=== PATIENT | female | born 1985 | race Caucasian/White ===

== ENCOUNTER 2018-02-02 22:39 | Emergency (ER) | payer OTHER, MEDICAID, SELFPAY | END 2018-02-03 02:46 | disposition home or self-care (01) | PROVIDERS: Emergency Provider Emergency Medicine; Visit Provider Emergency Medicine | DX: N12 Tubulo-interstitial nephritis, not specified as acute or chronic (principal) | CPT/HCPCS: 71010; 71045; 80053; 81003; 81015; 81025; 83690; 85025; 86318; 87086; 87400; 93005; 93010; 96360; 96361; 99058; 99285 ==

== ENCOUNTER 2018-11-02 17:47 | Emergency (ER) | payer OTHER, MEDICAID, SELFPAY ==
[2018-11-02 17:52] VITALS: BP 153/102; PULSE 97; RESP 20; TEMP 36.7; O2SAT 97; BMI 22.1
--- NOTE | 2018-11-02 20:02 | PC.NURSE ---
Pt concerned that her boyfriend cheated on her and she may have an std. Pt has not had any energy for some time feeling like she could sleep for 3 days. Pt denies any urinary sx other than some pressure with urination,denies odor or discharge
--- NOTE | 2018-11-02 20:36 | ED_ITS ---
HPI - Abdominal Pain <FELICIA Kelsey - Last Filed: 11/02/18 22:13> General Chief Complaint: Abdominal Pain Stated Complaint: LOW ENERGY, WANTS TO R/O STD Time Seen by Provider: 11/02/18 20:36 Source: patient Mode of arrival: ambulatory Limitations: no limitations History of Present Illness HPI narrative: 33-year-old healthy female with vague symptoms of weakness with lack of energy and occasional abdominal pain on off for the past year. She is also concerned about having a STD. She denies any vaginal discharge. She denies any vaginal bleeding. She states she thinks that her her boyfriend is cheating on her and is concerned she may have an STD denies any abdominal pain this evening. Last bowel movement was yesterday and was unremarkable. She denies any urinary symptoms. No fevers no chills. Positive p.o. intake. No nausea or vomiting. She denies any other concerns or complaints at this time. Related Data Previous Rx's Medication Instructions Recorded sulfamethoxazole-trimethoprim 1 tab PO BID 14 Days #0 tab 02/03/18 Allergies Allergy/AdvReac Type Severity Reaction Status Date / Time No Known Allergies Allergy Uncoded 02/02/18 22:47 Review of Systems <FELICIA Kelsey - Last Filed: 11/02/18 22:13> Constitutional Denies chills, Denies fever(s), Denies lethargy and Reports weakness Eyes Denies change in vision, Denies eye discharge, Denies irritation and Denies loss of vision ENT Ears, Nose, Mouth, and Throat: Denies change in voice, Denies neck pain and Denies sore throat Cardiovascular Denies chest pain, Denies irregular heart rhythm, Denies lightheadedness, Denies palpitations, Denies dyspnea, Denies dyspnea on exertion and Denies orthopnea Respiratory Denies cough, Denies dyspnea, Denies dyspnea on exertion and Denies wheezing Gastrointestinal Gastrointestinal: Denies abdominal pain, Denies change in bowel habits, Denies diarrhea, Denies nausea and Denies vomiting Genitourinary Denies hematuria, Denies flank pain, Denies urinary incontinence and Denies urinary urgency Musculoskeletal Denies neck pain Integumentary/Breasts Denies pruritus, Denies erythema, Denies rash and Denies wounds Neurologic Denies confusion, Denies loss of vision and Reports weakness Psychiatric Denies anxiety, Denies confusion, Denies depression, Denies homicidal ideation and Denies suicidal ideation Endocrine Denies palpitations Hematologic/Lymphatic Denies easy bruising Allergic/Immunologic Denies wheezing Exam <FELICIA Kelsey - Last Filed: 11/02/18 22:13> Initial Vital Signs Initial Vital Signs: Vital Signs Temperature 98.1 F 11/02/18 17:52 Pulse Rate 97 H 11/02/18 17:52 Respiratory Rate 20 11/02/18 17:52 Blood Pressure 153/102 H 11/02/18 17:52 Pulse Oximetry 97 11/02/18 17:52 Const General: cooperative and well developed Nutritional Appearance: well nourished Orientation: alert, awake, oriented x3 and not confused HENIL Mouth: oral mucosae normal, oropharynx normal and moist mucous membranes Eyes Conjunctivae: conjunctivae normal Sclera: sclerae normal Pupils: PERRL EOM: EOM intact bilaterally Resp Effort & Inspection: normal respiratory effort, able to speak in complete sentences, no respiratory distress and no use of accessory muscles Auscultation: clear to auscultation bilaterally, no rales, no rhonchi and no wheezes Cardio Rate: regular rate Rhythm: regular rhythm Heart Sounds: no click, no gallops, no murmurs and no rubs GI Inspection: non-distended Palpation: soft, no hepatosplenomegaly, No guarding, No pulsatile mass and No tender Auscultation: normal bowel sounds General: CVA tenderness Skin General: no rashes or lesions noted, No jaundice and No petechiae Neuro General: alert, oriented x3, gait normal and no focal motor deficits Speech: speech normal <Jone Allen DO - Last Filed: 11/03/18 01:40> Initial Vital Signs Initial Vital Signs: Vital Signs Temperature 98.1 F 11/02/18 17:52 Pulse Rate 97 H 11/02/18 17:52 Respiratory Rate 20 11/02/18 17:52 Blood Pressure 153/102 H 11/02/18 17:52 Pulse Oximetry 97 11/02/18 17:52 Course <FELICIA Kelsey - Last Filed: 11/02/18 22:13> Orders Ordered: ED Orders 11/02/18 20:51 XR chest 1V Stat EKG-12 Lead Stat 11/02/18 21:00 Complete Blood Count AUTO DIFF Stat Comprehensive Metabolic Panel Stat HIV 1 and 2 Antibody Stat Herpes Simp Virus 1&2 IgG Stat RPR W Reflex to Titer Stat Urine Chlamydia Gonorrhea PCR Stat Discontinued Medications Azithromycin (Zithromax) 1,000 mg PO NOW ONE Stop: 11/02/18 21:36 Last Admin: 11/02/18 22:23 Dose: 1,000 mg Ceftriaxone Sodium (Rocephin) 250 mg IM NOW ONE Stop: 11/02/18 21:36 Last Admin: 11/02/18 22:24 Dose: 250 mg Vital Signs - 8 hr 11/02/18 17:52 11/02/18 21:26 11/02/18 22:17 Temperature 98.1 F Pulse Rate 97 H 92 H 61 Respiratory Rate 20 17 16 Blood Pressure 153/102 H Blood Pressure [Left Arm] 138/97 H 152/98 H Pulse Oximetry 97 100 100 11/02/18 22:39 Temperature 97.7 F Pulse Rate 87 Respiratory Rate 19 Blood Pressure Blood Pressure [Left Arm] 146/98 H Pulse Oximetry 100 <Jone Allen DO - Last Filed: 11/03/18 01:40> Orders Ordered: ED Orders 11/02/18 20:51 XR chest 1V Stat EKG-12 Lead Stat 11/02/18 21:00 Complete Blood Count AUTO DIFF Stat Comprehensive Metabolic Panel Stat HIV 1 and 2 Antibody Stat Herpes Simp Virus 1&2 IgG Stat RPR W Reflex to Titer Stat Urine Chlamydia Gonorrhea PCR Stat Discontinued Medications Azithromycin (Zithromax) 1,000 mg PO NOW ONE Stop: 11/02/18 21:36 Last Admin: 11/02/18 22:23 Dose: 1,000 mg Ceftriaxone Sodium (Rocephin) 250 mg IM NOW ONE Stop: 11/02/18 21:36 Last Admin: 11/02/18 22:24 Dose: 250 mg Vital Signs - 8 hr 11/02/18 17:52 11/02/18 21:26 11/02/18 22:17 Temperature 98.1 F Pulse Rate 97 H 92 H 61 Respiratory Rate 20 17 16 Blood Pressure 153/102 H Blood Pressure [Left Arm] 138/97 H 152/98 H Pulse Oximetry 97 100 100 11/02/18 22:39 Temperature 97.7 F Pulse Rate 87 Respiratory Rate 19 Blood Pressure Blood Pressure [Left Arm] 146/98 H Pulse Oximetry 100 MDM - Abdominal Pain <Darnell MasFELICIA - Last Filed: 11/02/18 22:13> Lab Data Result diagrams: 11/02/18 21:00 11/02/18 21:00 Lab Results 11/02/18 11/02/18 11/02/18 Range/Units 21:00 21:00 21:00 WBC 8.3 (4.5-11.0) X10^3/uL RBC 4.59 (4.0-5.2) X10^6/uL Hgb 13.7 (12.0-16.0) g/dL Hct 40.8 (36-46) % MCV 88.8 (80-100) fL MCH 29.9 (26-34) PG MCHC 33.6 (30-36) % RDW 13.7 (11.6-14.8) % Plt Count 286 (150-400) X10^3/uL Neut % (Auto) 49.0 L (50-75) % Lymph % (Auto) 40.8 H (25-40) % [place] % (Auto) 5.6 (3-14) % Eos % (Auto) 3.7 (2-4) % Baso % (Auto) 0.9 (0-2) % Neut # (Auto) 4000 (0643-4152) /uL Sodium 138 (137-145) mmol/L Potassium 4.2 (3.4-5.1) mmol/L Chloride 101 (98-107) mmol/L Carbon Dioxide 28 (22-32) mmol/L BUN 15 (7-17) mg/dL Creatinine 0.90 (0.52-1.04) mg/dL Estimated GFR > 60.0 (>60) mL/min BUN/Creatinine Ratio 16.7 (6-22) Glucose 87 (70-100) mg/dL Calcium 9.4 (8.4-10.2) mg/dL Total Bilirubin 0.2 (0.2-1.3) mg/dL AST 23 (14-36) IU/L ALT 22 (9-52) IU/L Alkaline Phosphatase 63 (38-126) U/L Total Protein 7.1 (6.3-8.2) g/dL Albumin 4.2 (3.5-5.0) g/dL Globulin 2.9 (1.7-4.1) g/dL Albumin/Globulin Ratio 1.4 (1.0-2.8) Ur Chlamydia DNA (PCR) HIV 1&2 Antibody Negative (NEGATIVE) N gonorrhoeae DNA (PCR) 11/02/18 Range/Units 21:00 WBC (4.5-11.0) X10^3/uL RBC (4.0-5.2) X10^6/uL Hgb (12.0-16.0) g/dL Hct (36-46) % MCV (80-100) fL MCH (26-34) PG MCHC (30-36) % RDW (11.6-14.8) % Plt Count (150-400) X10^3/uL Neut % (Auto) (50-75) % Lymph % (Auto) (25-40) % [place] % (Auto) (3-14) % Eos % (Auto) (2-4) % Baso % (Auto) (0-2) % Neut # (Auto) (8262-3084) /uL Sodium (137-145) mmol/L Potassium (3.4-5.1) mmol/L Chloride (98-107) mmol/L Carbon Dioxide (22-32) mmol/L BUN (7-17) mg/dL Creatinine (0.52-1.04) mg/dL Estimated GFR (>60) mL/min BUN/Creatinine Ratio (6-22) Glucose (70-100) mg/dL Calcium (8.4-10.2) mg/dL Total Bilirubin (0.2-1.3) mg/dL AST (14-36) IU/L ALT (9-52) IU/L Alkaline Phosphatase (38-126) U/L Total Protein (6.3-8.2) g/dL Albumin (3.5-5.0) g/dL Globulin (1.7-4.1) g/dL Albumin/Globulin Ratio (1.0-2.8) Ur Chlamydia DNA (PCR) Not detected HIV 1&2 Antibody (NEGATIVE) N gonorrhoeae DNA (PCR) Not detected Point of care testing: Point of Care Testing Test Results Negative Urine Dip Bedside Urine Glucose Negative Bedside Urine Bilirubin - Negative Bedside Urine Ketone - Negative Urine Specific [place] 1.015 Bedside Urine Occult Blood - Negative Bedside Urine pH 7.5 Bedside Urine Protein - Negative Bedside Urine Urobilinogen - Negative Bedside Urine Nitrite - Negative Bedside Urine Leukocytes - Negative Esterase Imaging Data Chest x-ray: Radiologist's impression: View Report History Print [address] [address] XRay Report Signed Patient: Kathryn Whitehead MR#: [id number] : 1985 Acct:[id number] Age/Sex: 33 / F Date of Service: 11/02/18 Loc: ED Accession Number: [id number] Procedure: XR chest 1V Ordering Provider: Darnell Mas PROCEDURE: XR CHEST 1V INDICATIONS: Complaint of feeling weak and tired TECHNIQUE: One view of the chest was acquired. COMPARISON: [facility], , CHEST 1 VIEW, 02/03/2018, 0:16. FINDINGS: Surgical changes and devices: None. Lungs and pleura: No pleural effusions or pneumothorax. Lungs are clear. Mediastinum: Mediastinal contours appear normal. Heart size is normal. Bones and chest wall: No suspicious bony lesions. Overlying soft tissues appear unremarkable. IMPRESSION: No acute cardiopulmonary disease. Dictated by: Nova Anguiano M.D. on 11/02/2018 at 22:00 Approved by: Nova Anguiano M.D. on 11/02/2018 at 22:01 ECG Data Interpretation: EKG shows normal sinus rhythm with no ST elevation or depression. No ectopy. Ventricular rate is 76. Pr interval of 122. QRS duration of 86. QTC of 395. MDM Narrative Medical decision making narrative: CBC and Chem panel were obtained were unremarkable. Lipase was normal. Urinalysis was negative for urinary tract infection. GC and complaint a were obtained and are pending. Along with RPR, HIV and herpes titers. Patient encouraged to follow up for re-evaluation and laboratory results. Urinalysis was negative for urinary tract infection and She is empirically treated with Rocephin and azithromycin in the emergency room today. Chest x-ray was obtained and was negative for any acute findings. EKG shows sinus rhythm with no ST elevation or depression. No ectopy. No emergent causes of her subjective complaint of weakness for the past year is found. For any worsening symptoms return to the emergency room. <Jone Allen DO - Last Filed: 11/03/18 01:40> Lab Data Lab Results 11/02/18 11/02/18 11/02/18 Range/Units 21:00 21:00 21:00 WBC 8.3 (4.5-11.0) X10^3/uL RBC 4.59 (4.0-5.2) X10^6/uL Hgb 13.7 (12.0-16.0) g/dL Hct 40.8 (36-46) % MCV 88.8 (80-100) fL MCH 29.9 (26-34) PG MCHC 33.6 (30-36) % RDW 13.7 (11.6-14.8) % Plt Count 286 (150-400) X10^3/uL Neut % (Auto) 49.0 L (50-75) % Lymph % (Auto) 40.8 H (25-40) % [place] % (Auto) 5.6 (3-14) % Eos % (Auto) 3.7 (2-4) % Baso % (Auto) 0.9 (0-2) % Neut # (Auto) 4000 (4402-1537) /uL Sodium 138 (137-145) mmol/L Potassium 4.2 (3.4-5.1) mmol/L Chloride 101 (98-107) mmol/L Carbon Dioxide 28 (22-32) mmol/L BUN 15 (7-17) mg/dL Creatinine 0.90 (0.52-1.04) mg/dL Estimated GFR > 60.0 (>60) mL/min BUN/Creatinine Ratio 16.7 (6-22) Glucose 87 (70-100) mg/dL Calcium 9.4 (8.4-10.2) mg/dL Total Bilirubin 0.2 (0.2-1.3) mg/dL AST 23 (14-36) IU/L ALT 22 (9-52) IU/L Alkaline Phosphatase 63 (38-126) U/L Total Protein 7.1 (6.3-8.2) g/dL Albumin 4.2 (3.5-5.0) g/dL Globulin 2.9 (1.7-4.1) g/dL Albumin/Globulin Ratio 1.4 (1.0-2.8) Ur Chlamydia DNA (PCR) HIV 1&2 Antibody Negative (NEGATIVE) N gonorrhoeae DNA (PCR) 11/02/18 Range/Units 21:00 WBC (4.5-11.0) X10^3/uL RBC (4.0-5.2) X10^6/uL Hgb (12.0-16.0) g/dL Hct (36-46) % MCV (80-100) fL MCH (26-34) PG MCHC (30-36) % RDW (11.6-14.8) % Plt Count (150-400) X10^3/uL Neut % (Auto) (50-75) % Lymph % (Auto) (25-40) % [place] % (Auto) (3-14) % Eos % (Auto) (2-4) % Baso % (Auto) (0-2) % Neut # (Auto) (3097-0071) /uL Sodium (137-145) mmol/L Potassium (3.4-5.1) mmol/L Chloride (98-107) mmol/L Carbon Dioxide (22-32) mmol/L BUN (7-17) mg/dL Creatinine (0.52-1.04) mg/dL Estimated GFR (>60) mL/min BUN/Creatinine Ratio (6-22) Glucose (70-100) mg/dL Calcium (8.4-10.2) mg/dL Total Bilirubin (0.2-1.3) mg/dL AST (14-36) IU/L ALT (9-52) IU/L Alkaline Phosphatase (38-126) U/L Total Protein (6.3-8.2) g/dL Albumin (3.5-5.0) g/dL Globulin (1.7-4.1) g/dL Albumin/Globulin Ratio (1.0-2.8) Ur Chlamydia DNA (PCR) Not detected HIV 1&2 Antibody (NEGATIVE) N gonorrhoeae DNA (PCR) Not detected Point of care testing: Point of Care Testing Test Results Negative Urine Dip Bedside Urine Glucose Negative Bedside Urine Bilirubin - Negative Bedside Urine Ketone - Negative Urine Specific [place] 1.015 Bedside Urine Occult Blood - Negative Bedside Urine pH 7.5 Bedside Urine Protein - Negative Bedside Urine Urobilinogen - Negative Bedside Urine Nitrite - Negative Bedside Urine Leukocytes - Negative Esterase Discharge Plan Departure Patient Disposition: Home Clinical Impression: Possible exposure to STD Discharge Date/Time: 11/02/18 22:43 Interventions: ED Discharge Assessment Last Done: 11/02/18 22:42 Instructions: Facts About Sexually Transmitted Infections Activity Restrictions/Additional Instructions: Laboratory results chest x-ray and EKG were obtained today and were negative for any acute findings. No emergent cause of weakness is found today. STD testing has been obtained and is pending. Follow up with her primary care provider next week for re-evaluation and testing results. You have received antibiotics for empiric treatment of gonorrhea and chlamydia. For any worsening symptoms return to the emergency room Prescriptions: No Action sulfamethoxazole-trimethoprim 800 MG/160 MG tablet 1 tab PO BID 14 Days Qty: 0 RF: 0 Referrals: [facility], [facility] [Provider Group] <Jone Allen DO - Last Filed: 11/03/18 01:40> Cosign ED Attending Andressa Attestation: I was immediately available in the department for consultation. Documentation has been reviewed. I agree with assessment and plan.
--- NOTE | 2018-11-02 20:51 | DI.RAD.S_ITS ---
PROCEDURE: XR CHEST 1V INDICATIONS: Complaint of feeling weak and tired TECHNIQUE: One view of the chest was acquired. COMPARISON: [facility], , CHEST 1 VIEW, 02/03/2018, 0:16. FINDINGS: Surgical changes and devices: None. Lungs and pleura: No pleural effusions or pneumothorax. Lungs are clear. Mediastinum: Mediastinal contours appear normal. Heart size is normal. Bones and chest wall: No suspicious bony lesions. Overlying soft tissues appear unremarkable. IMPRESSION: No acute cardiopulmonary disease. Dictated by: Nova Anguiano M.D. on 11/02/2018 at 22:00 Approved by: Nova Anguiano M.D. on 11/02/2018 at 22:01
[2018-11-02 21:05] LABS: Add Manual Diff / Slide Review NO; Basophils Percent Auto 0.9 % (0-2); Eosinophils Percent Auto 3.7 % (2-4); Hematocrit 40.8 % (36-46); Hemoglobin 13.7 g/dL (12.0-16.0); Lymphocytes Percent Auto 40.8 % (25-40); Mean Corpuscular HGB Conc 33.6 % (30-36); Mean Corpuscular Hemoglobin 29.9 PG (26-34); Mean Corpuscular Volume 88.8 fL (80-100); Monocytes Percent Auto 5.6 % (3-14); Neutrophils Absolute Auto 4000 /uL (1500-7000); Platelet Count 286 X10^3/uL (150-400); Red Blood Cell Count 4.59 X10^6/uL (4.0-5.2); Red Cell Distribution Width 13.7 % (11.6-14.8); White Blood Cell Count 8.3 X10^3/uL (4.5-11.0)
[2018-11-02 21:22] LABS: Alanine Aminotransferase 22 IU/L (9-52); Albumin 4.2 g/dL (3.5-5.0); Albumin Globulin Ratio 1.4 (1.0-2.8); Alkaline Phosphatase 63 U/L (38-126); Aspartate Aminotransferase 23 IU/L (14-36); BUN Creatinine Ratio 16.7 (6-22); Bilirubin Total 0.2 mg/dL (0.2-1.3); Blood Urea Nitrogen 15 mg/dL (7-17); Calcium 9.4 mg/dL (8.4-10.2); Carbon Dioxide 28 mmol/L (22-32); Chloride 101 mmol/L (98-107); Estimated Glomerular Filt Rate > 60.0 mL/min (>60); Globulin 2.9 g/dL (1.7-4.1); Glucose 87 mg/dL (70-100); HEMOLYSIS < 15 (0-50); Potassium 4.2 mmol/L (3.4-5.1); Sodium 138 mmol/L (137-145); Total Protein 7.1 g/dL (6.3-8.2)
[2018-11-02 21:26] VITALS: BP 138/97; PULSE 92; RESP 17; O2SAT 100
[2018-11-02 22:17] VITALS: BP 152/98; PULSE 61; RESP 16; O2SAT 100
[2018-11-02] MEDS: AZITHROMYCIN 250 MG TABLET 1000 MG PO (22:23)
[2018-11-02] MEDS: cefTRIAXone 500 MG VIAL 250 MG IM (22:24)
[2018-11-02 22:30] LABS: HIV 1 and 2 Antibody NEGATIVE (NEGATIVE)
[2018-11-02 22:39] VITALS: BP 146/98; PULSE 87; RESP 19; TEMP 36.5; O2SAT 100
[2018-11-02 22:44] LABS: Urine N gonorrhoeae NOT DETECTED
[2018-11-02 22:50] LABS: Urine Chlamydia NOT DETECTED
[2018-11-04 16:12] LABS: HSV 2 IGG AB < 0.90 index (< 0.90)
[2018-11-05 14:10] LABS: RPR Screen Nonreactive (Nonreactive)
== END 2018-11-02 22:43 | disposition home or self-care (01) ==
PROVIDERS: Emergency Provider Nurse Practitioner Family
DX: Z20.2 Contact with and (suspected) exposure to infections with a predominantly sexual mode of transmission (principal)
CPT/HCPCS: 36415; 71045; 80053; 81003; 81025; 85025; 86592; 86695; 86696; 86703; 87491; 87591; 93005; 96372; 99283; 99285; J0696

== ENCOUNTER 2018-11-15 18:14 | Emergency (ER) | payer OTHER, MEDICAID, SELFPAY ==
[2018-11-15 18:25] VITALS: BP 163/106; PULSE 104; RESP 20; TEMP 36.4; O2SAT 100; BMI 22.1
--- NOTE | 2018-11-15 19:08 | ED_ITS ---
HPI - Abdominal Pain General Chief Complaint: Abdominal Pain Stated Complaint: feeling very sick, stomach pains, feeling crappy Time Seen by Provider: 11/15/18 18:30 Source: patient Mode of arrival: ambulatory Limitations: no limitations History of Present Illness HPI narrative: The patient was seen at this facility last week. She came in with vague complaints of abdominal discomfort, and not feeling well for over a year. She eats well, she drinks plenty of water. Her weight has been stable. She has had no fever, chills or sweats. 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 She denies significant anxiety or depression. She is not requiring medications. She has no obvious chronic medical issues. She has had no surgeries. She is currently on her menstrual cycle, she is having left lower quadrant cramping. She has no nausea, vomiting or diarrhea. She expressed concern for STD. An STD evaluation was done, and was negative other than a positive HSV 1 titer. The patient reports no history of active herpes, or obvious exposure. She in the past has had occasional cold sores . She has no recurrent outbreaks other than the oral lesions. Related Data Previous Rx's Medication Instructions Recorded sulfamethoxazole-trimethoprim 1 tab PO BID 14 Days #0 tab 02/03/18 Allergies Allergy/AdvReac Type Severity Reaction Status Date / Time No Known Drug Allergies Allergy Verified 11/15/18 19:48 Review of Systems Review of Systems ROS Unobtainable: All systems reviewed & are unremarkable except as noted in HPI and below Constitutional Denies chills, Denies fever(s), Denies lethargy and Denies weakness ENT Ears, Nose, Mouth, and Throat: Denies sore throat Cardiovascular Denies chest pain, Denies irregular heart rhythm, Denies lightheadedness, Denies palpitations, Denies dyspnea, Denies dyspnea on exertion and Denies orthopnea Respiratory Denies cough, Denies dyspnea, Denies dyspnea on exertion and Denies wheezing Gastrointestinal Gastrointestinal: Reports abdominal pain (LLQ abdominal pain), Denies change in bowel habits, Denies diarrhea, Denies nausea and Denies vomiting Genitourinary Denies hematuria, Denies flank pain, Denies urinary incontinence, Denies urinary urgency and Reports other (No history of genital lesions) Musculoskeletal Denies back pain Integumentary/Breasts Denies pruritus, Denies erythema, Denies rash and Denies wounds Neurologic Denies confusion and Denies weakness Psychiatric Denies anxiety, Denies confusion and Denies depression Endocrine Denies palpitations Allergic/Immunologic Denies wheezing PFSH Medical History No active medical problems (Acute) Surgical History No history of previous surgery (Acute) Social History Smoking Status: Former smoker alcohol intake: former substance use type: does not use Exam Initial Vital Signs Initial Vital Signs: Vital Signs Temperature 97.6 F 11/15/18 18:25 Pulse Rate 104 H 11/15/18 18:25 Respiratory Rate 20 11/15/18 18:25 Blood Pressure 163/106 H 11/15/18 18:25 Pulse Oximetry 100 11/15/18 18:25 Const General: cooperative and well developed Nutritional Appearance: well nourished Orientation: alert, awake and oriented x3 HENMT Head: normocephalic and atraumatic Face and sinus: face symmetric and no sinus tenderness Mouth: oral mucosae normal and moist mucous membranes Throat: posterior oropharynx normal, tonsils normal and uvula midline Eyes General: appearance normal, both eyes and all related structures Eyelids: eyelids normal Conjunctivae: conjunctivae normal Sclera: sclerae normal Pupils: PERRL EOM: EOM intact bilaterally Neck Thyroid: thyroid normal Resp Effort & Inspection: normal respiratory effort, able to speak in complete sentences, no respiratory distress and no use of accessory muscles Auscultation: clear to auscultation bilaterally, no rales, no rhonchi and no wheezes Cardio Rate: regular rate Rhythm: regular rhythm Heart Sounds: no click, no gallops, no murmurs and no rubs Pulses: normal peripheral pulses GI Inspection: non-distended and other (Left lower quadrant tenderness without guarding or rebound.) Palpation: no hepatosplenomegaly and No pulsatile mass Auscultation: normal bowel sounds Back/Spine/Pelvis Back: No CVA tenderness Skin General: no rashes or lesions noted, No jaundice and No petechiae Neuro General: alert, oriented x3, gait normal and no focal motor deficits Speech: speech normal Course Orders Ordered: ED Orders 11/15/18 19:45 CT abdomen pelvis w con Stat 11/15/18 20:45 Complete Blood Count AUTO DIFF Stat Comprehensive Metabolic Panel Stat Lipase Stat Discontinued Medications Sodium Chloride (Normal Saline 0.9%) 1,000 mls @ 150 mls/hr IV CONT ASHWINI Last Infusion: 11/15/18 22:30 Dose: 0 mls/hr Admin: 11/15/18 20:48 Dose: 150 mls/hr Ketorolac Tromethamine (Toradol) 30 mg IV NOW ONE Stop: 11/15/18 19:44 Last Admin: 11/15/18 20:49 Dose: 30 mg Vital Signs - 8 hr 11/15/18 18:25 11/15/18 20:01 11/15/18 22:31 Temperature 97.6 F Pulse Rate 104 H 81 78 Respiratory Rate 20 15 20 Blood Pressure 163/106 H 137/80 Blood Pressure [Left Arm] 138/93 H Pulse Oximetry 100 99 99 MDM - Abdominal Pain Lab Data Result diagrams: 11/15/18 20:45 11/15/18 20:45 Lab Results 11/15/18 11/15/18 Range/Units 20:45 20:45 WBC 8.1 (4.5-11.0) X10^3/uL RBC 4.45 (4.0-5.2) X10^6/uL Hgb 13.3 (12.0-16.0) g/dL Hct 39.4 (36-46) % MCV 88.6 (80-100) fL MCH 29.9 (26-34) PG MCHC 33.7 (30-36) % RDW 13.4 (11.6-14.8) % Plt Count 267 (150-400) X10^3/uL Neut % (Auto) 38.4 L (50-75) % Lymph % (Auto) 46.3 H (25-40) % [place] % (Auto) 7.3 (3-14) % Eos % (Auto) 6.5 H (2-4) % Baso % (Auto) 1.5 (0-2) % Neut # (Auto) 3100 (5483-5150) /uL Lymph # (Auto) 3800 (1552-2647) /uL [place] # (Auto) 600 (0-900) /uL Eos # (Auto) 500 H (0-450) /uL Baso # (Auto) 100 (0-100) /uL Sodium 139 (137-145) mmol/L Potassium 3.9 (3.4-5.1) mmol/L Chloride 103 (98-107) mmol/L Carbon Dioxide 29 (22-32) mmol/L BUN 14 (7-17) mg/dL Creatinine 0.80 (0.52-1.04) mg/dL Estimated GFR > 60.0 (>60) mL/min BUN/Creatinine Ratio 17.5 (6-22) Glucose 92 (70-100) mg/dL Calcium 9.2 (8.4-10.2) mg/dL Total Bilirubin 0.2 (0.2-1.3) mg/dL AST 20 (14-36) IU/L ALT 25 (9-52) IU/L Alkaline Phosphatase 73 (38-126) U/L Total Protein 6.8 (6.3-8.2) g/dL Albumin 3.9 (3.5-5.0) g/dL Globulin 2.9 (1.7-4.1) g/dL Albumin/Globulin Ratio 1.3 (1.0-2.8) Lipase 59 (23-300) U/L Point of care testing: Point of Care Testing Test Results Negative Urine Dip Bedside Urine Glucose Negative Bedside Urine Bilirubin - Negative Bedside Urine Ketone - Negative Urine Specific [place] 1.020 Bedside Urine Occult Blood +++ Bedside Urine pH 6.5 Bedside Urine Protein - Negative Bedside Urine Urobilinogen - Negative Bedside Urine Nitrite - Negative Bedside Urine Leukocytes - Negative Esterase Imaging Data CT scan - abdomen: Radiologist's impression: Normal MDM Narrative Medical decision making narrative: The patient is improved with IV Toradol. The LLQ tenderness may be associated with her current menstrual cycle. There is no obvious disease process. The HSV 1 lab finding seems to be related to chronic illness, nothing acute. Her vague symptoms of discomfort for over year require follow-up with her primary care doctor. 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 I also talked to the patient about potential exposures while at work. A vascular be alert to such possibilities, and avoid any substance that seems to be making her feel poorly. She can return at any time if needed. Discharge Plan Departure Patient Disposition: Home Clinical Impression: Abdominal pain, RLQ Discharge Date/Time: 11/15/18 22:33 Interventions: ED Discharge Assessment Last Done: 11/15/18 22:31 Instructions: DI for Abdominal Pain-Adult Activity Restrictions/Additional Instructions: Advil 3 tablets every 6 hr as needed for pain. Drink plenty of fluids, assure you have good nutrition. 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 Pain tension to solvents and solutions to contact to work. Avoid any materials you experience at work that may be causing you to feel ill. Return here as needed. Prescriptions: No Action sulfamethoxazole-trimethoprim 800 MG/160 MG tablet 1 tab PO BID 14 Days Qty: 0 RF: 0
--- NOTE | 2018-11-15 19:45 | DI.CT.S_ITS ---
PROCEDURE: CT ABDOMEN PELVIS W CON INDICATIONS: LLQ pain TECHNIQUE: After the administration of intravenous contrast, 5 mm thick sections acquired from the diaphragm to the symphysis. 5 mm coronal and sagittal reformats were acquired. For radiation dose reduction, the following was used: automated exposure control, adjustment of mA and/or kV according to patient size. COMPARISON: None. FINDINGS: Image quality: Excellent. ABDOMEN: Lung bases: Lung bases are clear. Heart size is normal. Solid organs: Liver is normal in size and enhancement. Gallbladder is contracted. Biliary system is non dilated. Pancreas enhances normally. Spleen is normal in size and enhancement. No adrenal nodules. Kidneys demonstrate normal size and enhancement, without hydronephrosis. Peritoneum and bowel: Bowel loops demonstrate normal wall thickness and caliber. No free fluid or air. Normal appendix. Nodes and vessels: No retroperitoneal or mesenteric adenopathy by size criteria. Aorta and inferior vena cava are normal in size. Miscellaneous: No ventral hernias. PELVIS: Genitourinary: Bladder wall thickness is normal. Miscellaneous: No inguinal hernias or adenopathy. Bones: No suspicious bony lesions. No vertebral body compression fractures. IMPRESSION: 1. No acute process. No expansion for left lower quadrant pain. 2. Normal appendix. Dictated by: Steffi Anderson M.D. on 11/15/2018 at 21:36 Approved by: Steffi Anderson M.D. on 11/15/2018 at 21:38
[2018-11-15 20:01] VITALS: BP 138/93; PULSE 81; RESP 15; O2SAT 99
[2018-11-15] MEDS: SODIUM CHLORIDE 0.9% 1,000 ML 150 ML IV (20:48)
[2018-11-15] MEDS: KETOROLAC 60 MG/2 ML VIAL 30 MG IV (20:49)
[2018-11-15 20:51] LABS: Add Manual Diff / Slide Review NO; Basophils Absolute Auto 100 /uL (0-100); Basophils Percent Auto 1.5 % (0-2); Eosinophils Absolute Auto 500 /uL (0-450); Eosinophils Percent Auto 6.5 % (2-4); Hematocrit 39.4 % (36-46); Hemoglobin 13.3 g/dL (12.0-16.0); Lymphocytes Absolute Auto 3800 /uL (1100-4500); Lymphocytes Percent Auto 46.3 % (25-40); Mean Corpuscular HGB Conc 33.7 % (30-36); Mean Corpuscular Hemoglobin 29.9 PG (26-34); Mean Corpuscular Volume 88.6 fL (80-100); Monocytes Absolute Auto 600 /uL (0-900); Monocytes Percent Auto 7.3 % (3-14); Neutrophils Absolute Auto 3100 /uL (1500-7000); Neutrophils Percent Auto 38.4 % (50-75); Platelet Count 267 X10^3/uL (150-400); Red Blood Cell Count 4.45 X10^6/uL (4.0-5.2); Red Cell Distribution Width 13.4 % (11.6-14.8); White Blood Cell Count 8.1 X10^3/uL (4.5-11.0)
[2018-11-15 21:04] LABS: Alanine Aminotransferase 25 IU/L (9-52); Albumin 3.9 g/dL (3.5-5.0); Albumin Globulin Ratio 1.3 (1.0-2.8); Alkaline Phosphatase 73 U/L (38-126); Aspartate Aminotransferase 20 IU/L (14-36); BUN Creatinine Ratio 17.5 (6-22); Bilirubin Total 0.2 mg/dL (0.2-1.3); Blood Urea Nitrogen 14 mg/dL (7-17); Calcium 9.2 mg/dL (8.4-10.2); Carbon Dioxide 29 mmol/L (22-32); Chloride 103 mmol/L (98-107); Estimated Glomerular Filt Rate > 60.0 mL/min (>60); Globulin 2.9 g/dL (1.7-4.1); Glucose 92 mg/dL (70-100); HEMOLYSIS < 15 (0-50); Lipase 59 U/L (23-300); Potassium 3.9 mmol/L (3.4-5.1); Sodium 139 mmol/L (137-145); Total Protein 6.8 g/dL (6.3-8.2)
[2018-11-15 22:31] VITALS: BP 137/80; PULSE 78; RESP 20; O2SAT 99
== END 2018-11-15 22:33 | disposition home or self-care (01) ==
PROVIDERS: Emergency Provider Emergency Medicine
DX: R10.31 Right lower quadrant pain (principal)
CPT/HCPCS: 36591; 74177; 80053; 81003; 81025; 83690; 85025; 96361; 96374; 99283; 99285; J1885; Q9967

== ENCOUNTER 2019-05-14 08:27 | Emergency (ER) | payer OTHER, MEDICAID, SELFPAY ==
[2019-05-14 08:35] VITALS: BP 173/98; PULSE 107; RESP 20; TEMP 36.8; O2SAT 100; BMI 23.0
--- NOTE | 2019-05-14 08:37 | ED.URI ---
HPI - URI/Sore Throat General Chief Complaint: Upper Respiratory Symptoms Stated Complaint: Headache x2 days, neck stiff Time Seen by Provider: 05/14/19 08:29 Source: patient and family Mode of arrival: ambulatory Limitations: no limitations History of Present Illness HPI Narrative: 33-year-old female smoker without significant medical history presents alone with a chief complaint of various, vague symptoms off and on for many months. She is admittedly quite anxious because her mother just had remission of cancer and she is concerned about her own health. She states that for many months she has had problems with headaches and sore throat as well as fatigue and persistent nausea. She denies any significant alcohol or street drug use. Her last menstrual cycle is current. She denies any recent travel or exposure to ill persons. She denies any dietary change and is otherwise well and free of complaint MD Complaint: sore throat Onset (ago): month(s) Duration: intermittent Severity: moderate Relieving factors: nothing Exacerbating factors: swallowing Able to tolerate fluids by mouth: Yes Associated symptoms: headache Treatments prior to arrival: acetaminophen Related Data Previous Rx's Medication Instructions Recorded sulfamethoxazole-trimethoprim 1 tab PO BID 14 Days #0 tab 02/03/18 cephalexin [Keflex] 500 mg PO QID 10 Days #40 cap 05/14/19 Allergies Allergy/AdvReac Type Severity Reaction Status Date / Time No Known Drug Allergies Allergy Verified 05/14/19 08:35 Review of Systems Constitutional Reports chills, Denies fever(s), Reports headache(s), Denies lethargy and Reports weakness Eyes Denies change in vision, Denies eye discharge, Denies irritation and Denies loss of vision ENT Ears, Nose, Mouth, and Throat: Denies change in voice, Reports headache(s), Reports neck pain and Reports sore throat Cardiovascular Denies chest pain, Denies irregular heart rhythm, Denies lightheadedness, Denies palpitations, Denies dyspnea, Denies dyspnea on exertion and Denies orthopnea Respiratory Denies cough, Denies dyspnea, Denies dyspnea on exertion and Denies wheezing Gastrointestinal Gastrointestinal: Denies abdominal pain, Denies change in bowel habits, Denies diarrhea, Reports nausea and Denies vomiting Genitourinary Denies hematuria, Denies flank pain, Denies urinary incontinence and Denies urinary urgency Musculoskeletal Reports neck pain Integumentary/Breasts Denies pruritus, Denies erythema, Denies rash and Denies wounds Neurologic Denies confusion, Reports headache(s), Denies loss of vision and Reports weakness Psychiatric Denies anxiety, Denies confusion, Denies depression, Denies homicidal ideation and Denies suicidal ideation Endocrine Denies palpitations Hematologic/Lymphatic Denies easy bruising Allergic/Immunologic Denies wheezing [facility] Medical History No active medical problems (Acute) Surgical History No history of previous surgery (Acute) Social History (Updated 11/15/18 @ 22:40 by Shakeel Ahn MD) Smoking Status: Former smoker alcohol intake: former substance use type: does not use Social History Smoking Status: Former smoker alcohol intake: former substance use type: does not use Exam Narrative Exam Narrative: GENERAL: 33-year-old female appears stated age, visibly anxious and concerned. HEAD: Atraumatic. Normocephalic. No temporal or scalp tenderness. EYES: Pupils equal round and reactive. Extraocular motions intact. No scleral icterus. No injection or drainage. ENT: Nose without bleeding, purulent drainage or septal hematoma. Posterior pharynx is erythematous with soft palate petechiae, no significant tonsillar swelling or exudate NECK: Trachea midline. No JVD or lymphadenopathy. Supple, nontender, no meningeal signs. CARDIOVASCULAR: Regular rate and rhythm without murmurs, gallops, or rubs. RESPIRATORY: Clear to auscultation. Breath sounds equal bilaterally. No wheezes, rales, or rhonchi. GASTROINTESTINAL: Abdomen soft, non-tender, nondistended. No hepato-splenomegaly, or palpable masses. No guarding. EXTREMITIES: No clubbing, cyanosis, or edema. No joint tenderness, effusion, or edema noted. BACK: Nontender without deformity or crepitance. No flank tenderness. NEURO: AOx3. SKIN: No rash or erythema. Initial Vital Signs Initial Vital Signs: Vital Signs Temperature 98.3 F 05/14/19 08:35 Pulse Rate 107 H 05/14/19 08:35 Respiratory Rate 20 05/14/19 08:35 Blood Pressure 173/98 H 05/14/19 08:35 Pulse Oximetry 100 05/14/19 08:35 Course Orders Ordered: ED Orders 05/14/19 08:49 Complete Blood Count AUTO DIFF Stat Comprehensive Metabolic Panel Stat Free T4 Free Thyroxine Stat Thyroid Stimulating Hormone Stat Discontinued Medications Ketorolac Tromethamine (Toradol) 60 mg IM NOW ONE Stop: 05/14/19 08:37 Last Admin: 05/14/19 08:40 Dose: 60 mg Vital Signs - 8 hr 05/14/19 08:35 Temperature 98.3 F Pulse Rate 107 H Respiratory Rate 20 Blood Pressure 173/98 H Pulse Oximetry 100 MDM - URI/Sore Throat Lab Data Result diagrams: 05/14/19 08:49 05/14/19 08:49 Lab Results 05/14/19 05/14/19 05/14/19 Range/Units 08:49 08:49 08:49 WBC 7.7 (4.5-11.0) X10^3/uL RBC 4.49 (4.0-5.2) X10^6/uL Hgb 13.4 (12.0-16.0) g/dL Hct 40.3 (36-46) % MCV 89.8 (80-100) fL MCH 29.8 (26-34) PG MCHC 33.1 (30-36) % RDW 13.8 (11.6-14.8) % Plt Count 323 (150-400) X10^3/uL Neut % (Auto) 61.0 (50-75) % Lymph % (Auto) 28.5 (25-40) % [place] % (Auto) 5.4 (3-14) % Eos % (Auto) 4.1 H (2-4) % Baso % (Auto) 1.0 (0-2) % Neut # (Auto) 4700 (3171-6491) /uL Lymph # (Auto) 2200 (2656-4113) /uL [place] # (Auto) 400 (0-900) /uL Eos # (Auto) 300 (0-450) /uL Baso # (Auto) 100 (0-100) /uL Sodium 136 L (137-145) mmol/L Potassium 3.9 (3.4-5.1) mmol/L Chloride 105 (98-107) mmol/L Carbon Dioxide 24 (22-32) mmol/L BUN 13 (7-17) mg/dL Creatinine 0.80 (0.52-1.04) mg/dL Estimated GFR > 60.0 (>60) mL/min BUN/Creatinine Ratio 16.3 (6-22) Glucose 133 H (70-100) mg/dL Calcium 9.0 (8.4-10.2) mg/dL Total Bilirubin 0.7 (0.2-1.3) mg/dL AST 23 (14-36) IU/L ALT 26 (9-52) IU/L Alkaline Phosphatase 67 (38-126) U/L Total Protein 7.2 (6.3-8.2) g/dL Albumin 4.2 (3.5-5.0) g/dL Globulin 3.0 (1.7-4.1) g/dL Albumin/Globulin Ratio 1.4 (1.0-2.8) Free T4 1.13 (0.78-2.19) ng/dL Point of Care Testing Test Results Negative Rapid Strep A Positive Urine Dip Bedside Urine Glucose Negative Bedside Urine Bilirubin - Negative Bedside Urine Ketone + 15 Urine Specific [place] 1.025 Bedside Urine Occult Blood ++ Bedside Urine pH 6.0 Bedside Urine Protein +/- 15 Bedside Urine Urobilinogen +/- 1mg Bedside Urine Nitrite - Negative Bedside Urine Leukocytes - Negative Esterase Discharge Plan Departure Patient Disposition: Home Clinical Impression: Strep pharyngitis Instructions: DI for Strep Throat Activity Restrictions/Additional Instructions: *You have been diagnosed with [ strep throat ] *What to do: *Take medications as directed *Follow up with your primary care provider in 2-3 days, call for an appointment. Let them know you were seen in the Emergency Department and that we ask that you be seen in follow up *Return to ER if you should have any new, worsening or concerning symptoms Prescriptions: New cephalexin [Keflex] 500 mg capsule 500 mg PO QID 10 Days Qty: 40 RF: 0 No Action sulfamethoxazole-trimethoprim 800 MG/160 MG tablet 1 tab PO BID 14 Days Qty: 0 RF: 0 Referrals: [facility] [Outside]
[2019-05-14] MEDS: KETOROLAC 60 MG/2 ML VIAL IM (08:40)
[2019-05-14 08:56] LABS: Add Manual Diff / Slide Review NO; Basophils Absolute Auto 100 /uL (0-100); Eosinophils Absolute Auto 300 /uL (0-450); Eosinophils Percent Auto 4.1 % (2-4); Hematocrit 40.3 % (36-46); Hemoglobin 13.4 g/dL (12.0-16.0); Lymphocytes Absolute Auto 2200 /uL (1100-4500); Lymphocytes Percent Auto 28.5 % (25-40); Mean Corpuscular HGB Conc 33.1 % (30-36); Mean Corpuscular Hemoglobin 29.8 PG (26-34); Mean Corpuscular Volume 89.8 fL (80-100); Monocytes Absolute Auto 400 /uL (0-900); Monocytes Percent Auto 5.4 % (3-14); Neutrophils Absolute Auto 4700 /uL (1500-7000); Platelet Count 323 X10^3/uL (150-400); Red Blood Cell Count 4.49 X10^6/uL (4.0-5.2); Red Cell Distribution Width 13.8 % (11.6-14.8); White Blood Cell Count 7.7 X10^3/uL (4.5-11.0)
[2019-05-14 09:08] LABS: Alanine Aminotransferase 26 IU/L (9-52); Albumin 4.2 g/dL (3.5-5.0); Albumin Globulin Ratio 1.4 (1.0-2.8); Alkaline Phosphatase 67 U/L (38-126); Aspartate Aminotransferase 23 IU/L (14-36); BUN Creatinine Ratio 16.3 (6-22); Bilirubin Total 0.7 mg/dL (0.2-1.3); Blood Urea Nitrogen 13 mg/dL (7-17); Carbon Dioxide 24 mmol/L (22-32); Chloride 105 mmol/L (98-107); Estimated Glomerular Filt Rate > 60.0 mL/min (>60); Glucose 133 mg/dL (70-100); HEMOLYSIS < 15 (0-50); Potassium 3.9 mmol/L (3.4-5.1); Sodium 136 mmol/L (137-145); Total Protein 7.2 g/dL (6.3-8.2)
[2019-05-14 09:24] LABS: Free T4, Direct Thyroxine 1.13 ng/dL (0.78-2.19)
--- NOTE | 2019-05-14 09:26 | ED_ITS ---
HPI - URI/Sore Throat General Chief Complaint: Upper Respiratory Symptoms Stated Complaint: Headache x2 days, neck stiff Time Seen by Provider: 05/14/19 08:29 Source: patient and family Mode of arrival: ambulatory Limitations: no limitations History of Present Illness HPI Narrative: 33-year-old female smoker without significant medical history presents alone with a chief complaint of various, vague symptoms off and on for many months. She is admittedly quite anxious because her mother just had remission of cancer and she is concerned about her own health. She states that for many months she has had problems with headaches and sore throat as well as fatigue and persistent nausea. She denies any significant alcohol or street drug use. Her last menstrual cycle is current. She denies any recent travel or exposure to ill persons. She denies any dietary change and is otherwise well and free of complaint MD Complaint: sore throat Onset (ago): month(s) Duration: intermittent Severity: moderate Relieving factors: nothing Exacerbating factors: swallowing Able to tolerate fluids by mouth: Yes Associated symptoms: headache Treatments prior to arrival: acetaminophen Related Data Previous Rx's Medication Instructions Recorded sulfamethoxazole-trimethoprim 1 tab PO BID 14 Days #0 tab 02/03/18 cephalexin [Keflex] 500 mg PO QID 10 Days #40 cap 05/14/19 Allergies Allergy/AdvReac Type Severity Reaction Status Date / Time No Known Drug Allergies Allergy Verified 05/14/19 08:35 Review of Systems Constitutional Reports chills, Denies fever(s), Reports headache(s), Denies lethargy and Reports weakness Eyes Denies change in vision, Denies eye discharge, Denies irritation and Denies loss of vision ENT Ears, Nose, Mouth, and Throat: Denies change in voice, Reports headache(s), Reports neck pain and Reports sore throat Cardiovascular Denies chest pain, Denies irregular heart rhythm, Denies lightheadedness, Denies palpitations, Denies dyspnea, Denies dyspnea on exertion and Denies orthopnea Respiratory Denies cough, Denies dyspnea, Denies dyspnea on exertion and Denies wheezing Gastrointestinal Gastrointestinal: Denies abdominal pain, Denies change in bowel habits, Denies diarrhea, Reports nausea and Denies vomiting Genitourinary Denies hematuria, Denies flank pain, Denies urinary incontinence and Denies urinary urgency Musculoskeletal Reports neck pain Integumentary/Breasts Denies pruritus, Denies erythema, Denies rash and Denies wounds Neurologic Denies confusion, Reports headache(s), Denies loss of vision and Reports weakness Psychiatric Denies anxiety, Denies confusion, Denies depression, Denies homicidal ideation and Denies suicidal ideation Endocrine Denies palpitations Hematologic/Lymphatic Denies easy bruising Allergic/Immunologic Denies wheezing [facility] Medical History No active medical problems (Acute) Surgical History No history of previous surgery (Acute) Social History (Updated 11/15/18 @ 22:40 by Shakeel Ahn MD) Smoking Status: Former smoker alcohol intake: former substance use type: does not use Social History Smoking Status: Former smoker alcohol intake: former substance use type: does not use Exam Narrative Exam Narrative: GENERAL: 33-year-old female appears stated age, visibly anxious and concerned. HEAD: Atraumatic. Normocephalic. No temporal or scalp tenderness. EYES: Pupils equal round and reactive. Extraocular motions intact. No scleral icterus. No injection or drainage. ENT: Nose without bleeding, purulent drainage or septal hematoma. Posterior pharynx is erythematous with soft palate petechiae, no significant tonsillar swelling or exudate NECK: Trachea midline. No JVD or lymphadenopathy. Supple, nontender, no meningeal signs. CARDIOVASCULAR: Regular rate and rhythm without murmurs, gallops, or rubs. RESPIRATORY: Clear to auscultation. Breath sounds equal bilaterally. No wheezes, rales, or rhonchi. GASTROINTESTINAL: Abdomen soft, non-tender, nondistended. No hepato- splenomegaly, or palpable masses. No guarding. EXTREMITIES: No clubbing, cyanosis, or edema. No joint tenderness, effusion, or edema noted. BACK: Nontender without deformity or crepitance. No flank tenderness. NEURO: AOx3. SKIN: No rash or erythema. Initial Vital Signs Initial Vital Signs: Vital Signs Temperature 98.3 F 05/14/19 08:35 Pulse Rate 107 H 05/14/19 08:35 Respiratory Rate 20 05/14/19 08:35 Blood Pressure 173/98 H 05/14/19 08:35 Pulse Oximetry 100 05/14/19 08:35 Course Orders Ordered: ED Orders 05/14/19 08:49 Complete Blood Count AUTO DIFF Stat Comprehensive Metabolic Panel Stat Free T4 Free Thyroxine Stat Thyroid Stimulating Hormone Stat Discontinued Medications Ketorolac Tromethamine (Toradol) 60 mg IM NOW ONE Stop: 05/14/19 08:37 Last Admin: 05/14/19 08:40 Dose: 60 mg Vital Signs - 8 hr 05/14/19 08:35 Temperature 98.3 F Pulse Rate 107 H Respiratory Rate 20 Blood Pressure 173/98 H Pulse Oximetry 100 MDM - URI/Sore Throat Lab Data Result diagrams: 05/14/19 08:49 05/14/19 08:49 Lab Results 05/14/19 05/14/19 05/14/19 Range/Units 08:49 08:49 08:49 WBC 7.7 (4.5-11.0) X10^3/uL RBC 4.49 (4.0-5.2) X10^6/uL Hgb 13.4 (12.0-16.0) g/dL Hct 40.3 (36-46) % MCV 89.8 (80-100) fL MCH 29.8 (26-34) PG MCHC 33.1 (30-36) % RDW 13.8 (11.6-14.8) % Plt Count 323 (150-400) X10^3/uL Neut % (Auto) 61.0 (50-75) % Lymph % (Auto) 28.5 (25-40) % [place] % (Auto) 5.4 (3-14) % Eos % (Auto) 4.1 H (2-4) % Baso % (Auto) 1.0 (0-2) % Neut # (Auto) 4700 (7187-3132) /uL Lymph # (Auto) 2200 (5864-0556) /uL [place] # (Auto) 400 (0-900) /uL Eos # (Auto) 300 (0-450) /uL Baso # (Auto) 100 (0-100) /uL Sodium 136 L (137-145) mmol/L Potassium 3.9 (3.4-5.1) mmol/L Chloride 105 (98-107) mmol/L Carbon Dioxide 24 (22-32) mmol/L BUN 13 (7-17) mg/dL Creatinine 0.80 (0.52-1.04) mg/dL Estimated GFR > 60.0 (>60) mL/min BUN/Creatinine Ratio 16.3 (6-22) Glucose 133 H (70-100) mg/dL Calcium 9.0 (8.4-10.2) mg/dL Total Bilirubin 0.7 (0.2-1.3) mg/dL AST 23 (14-36) IU/L ALT 26 (9-52) IU/L Alkaline Phosphatase 67 (38-126) U/L Total Protein 7.2 (6.3-8.2) g/dL Albumin 4.2 (3.5-5.0) g/dL Globulin 3.0 (1.7-4.1) g/dL Albumin/Globulin Ratio 1.4 (1.0-2.8) Free T4 1.13 (0.78-2.19) ng/dL Point of Care Testing Test Results Negative Rapid Strep A Positive Urine Dip Bedside Urine Glucose Negative Bedside Urine Bilirubin - Negative Bedside Urine Ketone + 15 Urine Specific [place] 1.025 Bedside Urine Occult Blood ++ Bedside Urine pH 6.0 Bedside Urine Protein +/- 15 Bedside Urine Urobilinogen +/- 1mg Bedside Urine Nitrite - Negative Bedside Urine Leukocytes - Negative Esterase Discharge Plan Departure Patient Disposition: Home Clinical Impression: Strep pharyngitis Instructions: DI for Strep Throat Activity Restrictions/Additional Instructions: *You have been diagnosed with [ strep throat ] *What to do: *Take medications as directed *Follow up with your primary care provider in 2-3 days, call for an appointment. Let them know you were seen in the Emergency Department and that we ask that you be seen in follow up *Return to ER if you should have any new, worsening or concerning symptoms Prescriptions: New cephalexin [Keflex] 500 mg capsule 500 mg PO QID 10 Days Qty: 40 RF: 0 No Action sulfamethoxazole-trimethoprim 800 MG/160 MG tablet 1 tab PO BID 14 Days Qty: 0 RF: 0 Referrals: [facility] [Outside]
[2019-05-14 09:38] LABS: Thyroid Stimulating Hormone 0.86 uIU/mL (0.47-4.68)
[2019-05-14 09:41] VITALS: BP 146/91; PULSE 105; RESP 18; O2SAT 95
== END 2019-05-14 09:42 | disposition home or self-care (01) ==
PROVIDERS: Emergency Provider Emergency Medicine
DX: J02.0 Streptococcal pharyngitis (principal)
CPT/HCPCS: 36415; 80053; 81003; 81025; 84439; 84443; 85025; 87880; 96372; 99283; J1885

== ENCOUNTER 2019-09-27 09:42 | Emergency (ER) | payer OTHER, MEDICAID, SELFPAY ==
[2019-09-27 09:47] VITALS: BP 149/79; PULSE 104; RESP 12; TEMP 36.6; O2SAT 100
[2019-09-27 10:06] LABS: Bacteria Urine None Seen; RBC Urine None Seen (0-5/HPF); WBC Urine None Seen (0-5/HPF)
[2019-09-27 10:08] LABS: Appearance Urine UA CLOUDY; Bilirubin Urine UA NEGATIVE (NEGATIVE); Color Urine UA YELLOW; Glucose Urine UA NEGATIVE (Negative); Ketones Urine UA NEGATIVE (NEGATIVE); Leukocyte Esterase Urine UA NEGATIVE (NEGATIVE); Nitrite Urine UA NEGATIVE (Negative); Occult Blood Urine UA NEGATIVE (Negative); Protein Urine UA NEGATIVE (Negative); Specific Gravity Urine UA 1.015 (1.000-1.035); Urobilinogen Urine UA 0.2 E.U./dL (0.2)
[2019-09-27 10:14] LABS: Amorphous Sediment Urine 1+; Culture Indicated Urine Cult Not Indicated; Squamous Epithelial Cell Urine 10-30 /HPF (0-5/HPF)
[2019-09-27 10:15] VITALS: BP 135/97; PULSE 81; RESP 14; O2SAT 100
[2019-09-27 10:23] LABS: Add Manual Diff / Slide Review NO; Basophils Absolute Auto 100 /uL (0-100); Basophils Percent Auto 1.2 % (0-2); Eosinophils Absolute Auto 400 /uL (0-450); Eosinophils Percent Auto 5.6 % (2-4); Hemoglobin 14.1 g/dL (12.0-16.0); Lymphocytes Absolute Auto 2400 /uL (1100-4500); Mean Corpuscular HGB Conc 33.5 % (30-36); Mean Corpuscular Hemoglobin 29.6 PG (26-34); Mean Corpuscular Volume 88.5 fL (80-100); Monocytes Absolute Auto 400 /uL (0-900); Monocytes Percent Auto 5.1 % (3-14); Neutrophils Absolute Auto 4100 /uL (1500-7000); Neutrophils Percent Auto 56.1 % (50-75); Platelet Count 302 X10^3/uL (150-400); Red Blood Cell Count 4.75 X10^6/uL (4.0-5.2); Red Cell Distribution Width 14.8 % (11.6-14.8); White Blood Cell Count 7.4 X10^3/uL (4.5-11.0)
[2019-09-27 10:26] LABS: INR 0.9 (0.9-1.3); Prothrombin Time 10.4 SECONDS (10.1-12.7)
--- NOTE | 2019-09-27 10:26 | ED_ITS ---
HPI - Abdominal Pain General Chief Complaint: Abdominal Pain Stated Complaint: throwing up blood,pooping blood Time Seen by Provider: 09/27/19 10:25 Source: patient Mode of arrival: Ambulatory History of Present Illness HPI narrative: 34-year-old comes in complaining of abdominal pain with her current emesis sometimes blood tinged. She also notes recurrent episodes of black stool. This is been going on for a number of years she has not had a complete workup and does not have a primary care physician. She does not describe weight loss. She does not describe significant reflux symptoms. She has been eating regularly. No diarrhea fever chills or dysuria complaint: abdominal pain Onset (ago): year(s) Pain Consistency: intermittent Location: diffuse and periumbilical Severity: moderate Quality: burning Radiation: none Relieving factors: nothing Exacerbating factors: nothing Associated symptoms: nausea and vomiting Related Data Hx Last Menstrual Period: One week ago Patient : No Home Medications Medication Instructions Recorded Confirmed No Known Home Medications 09/27/19 09/27/19 Previous Rx's Medication Instructions Recorded omeprazole 20 mg PO DAILY #30 cap 09/27/19 ondansetron HCl [Zofran] 4 mg PO Q8H PRN #20 tab 09/27/19 Allergies Allergy/AdvReac Type Severity Reaction Status Date / Time No Known Drug Allergies Allergy Verified 09/27/19 09:50 Review of Systems Review of Systems Narrative: Negative except for HPI, otherwise unremarkable Patient History Medical History No active medical problems (Acute) Surgical History No history of previous surgery (Acute) Social History Smoking Status: Former smoker alcohol intake: former substance use type: does not use Smoking Status: Former smoker alcohol intake frequency: holidays/special occasions only Substance Use Type: marijuana Exam Initial Vital Signs Initial Vital Signs: Vital Signs Temperature 97.8 F 09/27/19 09:47 Pulse Rate 104 H 09/27/19 09:47 Respiratory Rate 12 09/27/19 09:47 Blood Pressure 149/79 H 09/27/19 09:47 Pulse Oximetry 100 09/27/19 09:47 Const General: cooperative and ill appearing Orientation: alert and awake Other: Dry mucous membranes HENMT Throat: posterior oropharynx normal Eyes General: appearance normal, both eyes and all related structures Neck Neck: normal visual inspection Lymphatic: lymphadenopathy Resp Effort & Inspection: normal respiratory effort Other: Mild wheezes throughout Cardio Rate: regular rate Rhythm: regular rhythm Heart Sounds: murmur GI Inspection: normal to inspection Palpation: soft and No tender Auscultation: normal bowel sounds Skin General: no rashes or lesions noted Neuro General: alert, awake, oriented x3 and no focal motor deficits Extrem General: full ROM and capillary refill normal Psych Appearance: disheveled Mental Status: mental status grossly normal Speech and Movement: speech and movement normal Course Orders Ordered: ED Orders 09/27/19 09:57 Urinalysis and Microscopic Stat 09/27/19 10:15 Complete Blood Count AUTO DIFF Stat Comprehensive Metabolic Panel Stat Lipase Stat Partial Thromboplastin Time Stat Prothrombin Time INR Stat Discontinued Medications Sodium Chloride (Normal Saline 0.9%) 1,000 mls @ 150 mls/hr IV CONT ASHWINI Last Admin: 09/27/19 10:47 Dose: 150 mls/hr Documented by: SCANBROOKSO Ondansetron HCl (Zofran) 4 mg IV NOW ONE Stop: 09/27/19 10:42 Last Admin: 09/27/19 10:48 Dose: 4 mg Documented by: SCANBROOKSO Vital Signs Vital signs: Vital Signs - 8 hr 09/27/19 11:30 09/27/19 12:00 09/27/19 13:00 Pulse Rate 82 Respiratory Rate Blood Pressure Blood Pressure [Left Arm] 135/87 140/90 135/98 H Pulse Oximetry 100 09/27/19 13:57 Pulse Rate 86 Respiratory Rate 17 Blood Pressure 127/85 Blood Pressure [Left Arm] Pulse Oximetry 100 MDM - Abdominal Pain Lab Data Attestation: I reviewed the patient's lab results. Lab results narrative: Of note no evidence of anemia despite the complaints of blood-tinged sputum and occasional black stools. Result diagrams: 09/27/19 10:15 09/27/19 10:15 Labs: Lab Results 09/27/19 09/27/19 09/27/19 Range/Units 09:57 10:15 10:15 WBC 7.4 (4.5-11.0) X10^3/uL RBC 4.75 (4.0-5.2) X10^6/uL Hgb 14.1 (12.0-16.0) g/dL Hct 42.0 (36-46) % MCV 88.5 (80-100) fL MCH 29.6 (26-34) PG MCHC 33.5 (30-36) % RDW 14.8 (11.6-14.8) % Plt Count 302 (150-400) X10^3/uL Neut % (Auto) 56.1 (50-75) % Lymph % (Auto) 32.0 (25-40) % Harris % (Auto) 5.1 (3-14) % Eos % (Auto) 5.6 H (2-4) % Baso % (Auto) 1.2 (0-2) % Neut # (Auto) 4100 (3986-5921) /uL Lymph # (Auto) 2400 (3584-3658) /uL Harris # (Auto) 400 (0-900) /uL Eos # (Auto) 400 (0-450) /uL Baso # (Auto) 100 (0-100) /uL PT 10.4 (10.1-12.7) SECONDS INR 0.9 (0.9-1.3) APTT 36 (26.4-36.2) SECONDS Sodium (137-145) mmol/L Potassium (3.4-5.1) mmol/L Chloride (98-107) mmol/L Carbon Dioxide (22-32) mmol/L BUN (7-17) mg/dL Creatinine (0.52-1.04) mg/dL Estimated GFR (>60) mL/min BUN/Creatinine Ratio (6-22) Glucose (70-100) mg/dL Calcium (8.4-10.2) mg/dL Total Bilirubin (0.2-1.3) mg/dL AST (14-36) IU/L ALT (<35) IU/L Alkaline Phosphatase (38-126) U/L Total Protein (6.3-8.2) g/dL Albumin (3.5-5.0) g/dL Globulin (1.7-4.1) g/dL Albumin/Globulin Ratio (1.0-2.8) Lipase (23-300) U/L Urine Color Yellow Urine Appearance Cloudy Urine pH 7.0 (4.5-8.0) Ur Specific Hartsel 1.015 (1.000-1.035) Urine Protein Negative (Negative) Urine Glucose (UA) Negative (Negative) g/dL Urine Ketones Negative (NEGATIVE) Urine Occult Blood Negative (Negative) Urine Nitrate Negative (Negative) Urine Bilirubin Negative (NEGATIVE) Urine Urobilinogen 0.2 (0.2) E.U./dL Ur Leukocyte Esterase Negative (NEGATIVE) Urine RBC None seen (0-5/HPF) Urine WBC None seen (0-5/HPF) Ur Squamous Epith Cells 10-30 /hpf H (0-5/HPF) Amorphous Sediment 1+ Urine Bacteria None seen (None) Ur Culture Indicated? Cult not indicated 09/27/19 Range/Units 10:15 WBC (4.5-11.0) X10^3/uL RBC (4.0-5.2) X10^6/uL Hgb (12.0-16.0) g/dL Hct (36-46) % MCV (80-100) fL MCH (26-34) PG MCHC (30-36) % RDW (11.6-14.8) % Plt Count (150-400) X10^3/uL Neut % (Auto) (50-75) % Lymph % (Auto) (25-40) % Harris % (Auto) (3-14) % Eos % (Auto) (2-4) % Baso % (Auto) (0-2) % Neut # (Auto) (0214-1005) /uL Lymph # (Auto) (0829-8107) /uL Harris # (Auto) (0-900) /uL Eos # (Auto) (0-450) /uL Baso # (Auto) (0-100) /uL PT (10.1-12.7) SECONDS INR (0.9-1.3) APTT (26.4-36.2) SECONDS Sodium 139 (137-145) mmol/L Potassium 3.8 (3.4-5.1) mmol/L Chloride 104 (98-107) mmol/L Carbon Dioxide 26 (22-32) mmol/L BUN 17 (7-17) mg/dL Creatinine 0.80 (0.52-1.04) mg/dL Estimated GFR > 60.0 (>60) mL/min BUN/Creatinine Ratio 21.3 (6-22) Glucose 106 H (70-100) mg/dL Calcium 9.4 (8.4-10.2) mg/dL Total Bilirubin 0.2 (0.2-1.3) mg/dL AST 24 (14-36) IU/L ALT 16 (<35) IU/L Alkaline Phosphatase 89 (38-126) U/L Total Protein 7.0 (6.3-8.2) g/dL Albumin 4.1 (3.5-5.0) g/dL Globulin 2.9 (1.7-4.1) g/dL Albumin/Globulin Ratio 1.4 (1.0-2.8) Lipase 80 (23-300) U/L Urine Color Urine Appearance Urine pH (4.5-8.0) Ur Specific Hartsel (1.000-1.035) Urine Protein (Negative) Urine Glucose (UA) (Negative) g/dL Urine Ketones (NEGATIVE) Urine Occult Blood (Negative) Urine Nitrate (Negative) Urine Bilirubin (NEGATIVE) Urine Urobilinogen (0.2) E.U./dL Ur Leukocyte Esterase (NEGATIVE) Urine RBC (0-5/HPF) Urine WBC (0-5/HPF) Ur Squamous Epith Cells (0-5/HPF) Amorphous Sediment Urine Bacteria (None) Ur Culture Indicated? Point of care testing: Point of Care Testing Test Results Negative Stool Occult Blood Negative MDM Narrative Medical decision making narrative: Chronic abdominal pain with vomiting. Labs are reassuring. Will treat with Zofran and omeprazole follow up with primary care. No acute life-threatening issues or surgical abnormalities appreciated today safe for home discharge Discharge Plan Departure Patient Disposition: Home Clinical Impression: Vomiting Qualifiers: Vomiting type: unspecified Vomiting Intractability: non-intractable Nausea presence: with nausea Qualified Code(s): R11.2 - Nausea with vomiting, unspecified Abdominal pain Qualifiers: Abdominal location: left upper quadrant Qualified Code(s): R10.12 - Left upper quadrant pain Discharge Date/Time: 09/27/19 13:59 Instructions: DI for Vomiting -- Adult Activity Restrictions/Additional Instructions: I am sorry that you continue to have these episodes of vomiting and her feeling generally unwell. In the emergency department today I am quite reassured that there are no life-threatening issues. He certainly looks better after some hydration and nausea medications. I will encourage you to follow up with our Health lean manufacturing coordinator by calling [phone] to set up a primary care physician and arrange ER follow-up I am going to send her home with a prescription for Zofran, a nausea medicine so that we can hopefully avoid future emergency room visits because of vomiting. I am also going to suggest that you begin taking omeprazole, 20 mg daily which is a stomach acid multimedia educational specialist medication to help with overall symptoms I hope you would feel better soon Prescriptions: New ondansetron HCl [Zofran] 4 mg tablet 4 mg PO Q8H PRN (Reason: nausea and vomiting) Qty: 20 RF: 0 omeprazole 20 mg capsule,delayed release(DR/EC) 20 mg PO DAILY Qty: 30 RF: 0 No Action No Known Home Medications RF: 0
[2019-09-27 10:29] LABS: PTT Partial Thromboplastin Tim 36 SECONDS (26.4-36.2)
[2019-09-27 10:31] LABS: Alanine Aminotransferase 16 IU/L (<35); Albumin 4.1 g/dL (3.5-5.0); Albumin Globulin Ratio 1.4 (1.0-2.8); Alkaline Phosphatase 89 U/L (38-126); Aspartate Aminotransferase 24 IU/L (14-36); BUN Creatinine Ratio 21.3 (6-22); Bilirubin Total 0.2 mg/dL (0.2-1.3); Blood Urea Nitrogen 17 mg/dL (7-17); Calcium 9.4 mg/dL (8.4-10.2); Carbon Dioxide 26 mmol/L (22-32); Chloride 104 mmol/L (98-107); Estimated Glomerular Filt Rate > 60.0 mL/min (>60); Globulin 2.9 g/dL (1.7-4.1); Glucose 106 mg/dL (70-100); HEMOLYSIS < 15 (0-50); Lipase 80 U/L (23-300); Potassium 3.8 mmol/L (3.4-5.1); Sodium 139 mmol/L (137-145)
[2019-09-27] MEDS: SODIUM CHLORIDE 0.9% 1,000 ML 150 ML IV (10:47)
[2019-09-27] MEDS: ONDANSETRON 4 MG/2 ML INJ IV (10:48)
[2019-09-27 11:30] VITALS: BP 135/87; PULSE 82; O2SAT 100
[2019-09-27 12:00] VITALS: BP 140/90
[2019-09-27 13:00] VITALS: BP 135/98
[2019-09-27 13:57] VITALS: BP 127/85; PULSE 86; RESP 17; O2SAT 100
--- NOTE | 2019-09-27 20:20 | PC.NURSE ---
2020 Called the number for the patient for the 2nd time to try to contact her. Patient left her wallet with cards and ID in the ED. Patient did not answer and had no answering machine. Wallet was taken down to lost and found.
== END 2019-09-27 13:59 | disposition home or self-care (01) ==
PROVIDERS: Emergency Provider Emergency Medicine
DX: R11.2 Nausea with vomiting, unspecified (principal); R10.12 Left upper quadrant pain
CPT/HCPCS: 36415; 80053; 81001; 81025; 82272; 83690; 85025; 85610; 85730; 93005; 96374; 99283; 99284; J2405

== ENCOUNTER 2019-10-06 09:37 | Emergency (ER) | payer OTHER, MEDICAID, SELFPAY ==
[2019-10-06 09:49] VITALS: BP 176/96; PULSE 103; RESP 16; TEMP 36.8; O2SAT 100; BMI 22.1
--- NOTE | 2019-10-06 09:50 | ED.DENTAL ---
HPI - Dental/Oral General Chief complaint: Dental/Oral Stated complaint: possible tooth infecton Time Seen by Provider: 10/06/19 09:48 History of Present Illness HPI Narrative: 34-year-old woman presents with increasing right lower quadrant facial pain related to broken number 30 tooth. The tooth itself has been broken for about a year after a crown fell off at that point. That route is so she is not having any dental pain. She has noticed some submandibular lymphadenopathy. She is not noting fevers. She is noting some purulence discharge from around the tooth. She is still able to eat and drink. The swelling began last night. No fever, cough, cold, chills, difficulty breathing or airway compromise, no throat pain or fullness. Denies , no chest pain, shortness of breath, skin changes rashes, or edema. Teeth map: 1. Related Data Previous Rx's Medication Instructions Recorded omeprazole 20 mg PO DAILY #30 cap 09/27/19 ondansetron HCl [Zofran] 4 mg PO Q8H PRN #20 tab 09/27/19 amoxicillin 500 mg PO TID #21 cap 10/06/19 fluconazole [Diflucan] 150 mg PO Q3D #2 tab 10/06/19 Allergies Allergy/AdvReac Type Severity Reaction Status Date / Time No Known Drug Allergies Allergy Verified 09/27/19 09:50 Review of Systems Review of Systems ROS Unobtainable: All systems reviewed & are unremarkable except as noted in HPI and below Patient History Medical History No active medical problems (Acute) Surgical History No history of previous surgery (Acute) Social History Smoking Status: Former smoker alcohol intake: former substance use type: does not use Smoking Status: Former smoker alcohol intake frequency: holidays/special occasions only Substance Use Type: marijuana Exam Narrative Exam Narrative: General: Healthy appearing, in no acute distress. Able to give a complete and full history cooperative. Well-nourished well-developed HEENT: Moist mucous membranes, normal sclera with reactive pupils, some minor fullness over the angle of the jaw on the right side. Tooth number 30 is mostly broken off at the gumline with the residual piece on the lingual side. There is a bit of discharge around the tooth but no obvious pointing abscess. Neck: No JVD, supple, she has minor submandibular lymphadenopathy Respiratory: No respiratory difficulty speaking in full sentences Neurologic: Grossly neurologically intact with no obvious asymmetries or abnormalities Psych: appropriate insight and affect Initial Vital Signs Initial Vital Signs: Vital Signs Temperature 98.2 F 10/06/19 09:49 Pulse Rate 103 H 10/06/19 09:49 Respiratory Rate 16 10/06/19 09:49 Blood Pressure 176/96 H 10/06/19 09:49 Pulse Oximetry 100 10/06/19 09:49 Course Vital Signs Vital signs: Vital Signs - 8 hr 10/06/19 09:49 Temperature 98.2 F Pulse Rate 103 H Respiratory Rate 16 Blood Pressure 176/96 H Pulse Oximetry 100 Discharge Plan Departure Patient Disposition: Home Clinical Impression: Dental abscess Instructions: Tooth Abscess Activity Restrictions/Additional Instructions: Thank you for coming in today Here to is broken and will likely need to be removed and in the meantime has developed a small dental infection. I have given you a prescription for amoxicillin 500 mg 3 times a day for 7 days. Please complete the whole prescription. If you do developed a vaginal yeast infection by the end of this prescription he can fill the single 150 mg Diflucan dose to treat that. This is a temporizing measure only, you do need to see a dentist for definitive care. Your other teeth look wonderful and taking care of them is certainly important. I wish you the best Prescriptions: New amoxicillin 500 mg capsule 500 mg PO TID Qty: 21 RF: 0 fluconazole [Diflucan] 150 mg tablet 150 mg PO Q3D Qty: 2 RF: 0 No Action ondansetron HCl [Zofran] 4 mg tablet 4 mg PO Q8H PRN (Reason: nausea and vomiting) Qty: 20 RF: 0 omeprazole 20 mg capsule,delayed release(DR/EC) 20 mg PO DAILY Qty: 30 RF: 0
== END 2019-10-06 10:20 | disposition home or self-care (01) ==
LOC: ED 10:03
PROVIDERS: Emergency Provider Emergency Medicine
DX: K04.7 Periapical abscess without sinus (principal)
CPT/HCPCS: 99283

== ENCOUNTER 2019-11-06 00:21 | Emergency (ER) | payer OTHER, MEDICAID, SELFPAY ==
[2019-11-06 00:30] VITALS: BP 150/103; PULSE 101; RESP 18; TEMP 36.3; O2SAT 100; BMI 22.1
[2019-11-06 01:04] LABS: INR 1.1 (0.9-1.3); Prothrombin Time 12.2 SECONDS (10.1-12.7)
[2019-11-06] MEDS: SODIUM CHLORIDE 0.9% 1,000 ML 150 ML IV (01:04)
[2019-11-06 01:06] LABS: Add Manual Diff / Slide Review NO; Basophils Absolute Auto 200 /uL (0-100); Basophils Percent Auto 1.2 % (0-2); Eosinophils Absolute Auto 100 /uL (0-450); Eosinophils Percent Auto 0.6 % (2-4); Hematocrit 41.2 % (36-46); Hemoglobin 13.8 g/dL (12.0-16.0); Lymphocytes Absolute Auto 2700 /uL (1100-4500); Lymphocytes Percent Auto 20.7 % (25-40); Mean Corpuscular HGB Conc 33.4 % (30-36); Mean Corpuscular Hemoglobin 29.2 PG (26-34); Mean Corpuscular Volume 87.5 fL (80-100); Monocytes Absolute Auto 600 /uL (0-900); Monocytes Percent Auto 4.9 % (3-14); Neutrophils Absolute Auto 9500 /uL (1500-7000); Neutrophils Percent Auto 72.6 % (50-75); Platelet Count 364 X10^3/uL (150-400); Red Blood Cell Count 4.71 X10^6/uL (4.0-5.2); Red Cell Distribution Width 13.6 % (11.6-14.8)
[2019-11-06 01:09] LABS: Alanine Aminotransferase 17 IU/L (<35); Albumin 4.9 g/dL (3.5-5.0); Albumin Globulin Ratio 1.3 (1.0-2.8); Alkaline Phosphatase 67 U/L (38-126); Aspartate Aminotransferase 33 IU/L (14-36); BUN Creatinine Ratio 21.4 (6-22); Bilirubin Total 0.6 mg/dL (0.2-1.3); Blood Urea Nitrogen 15 mg/dL (7-17); Calcium 9.6 mg/dL (8.4-10.2); Carbon Dioxide 28 mmol/L (22-32); Chloride 100 mmol/L (98-107); Estimated Glomerular Filt Rate > 60.0 mL/min (>60); Globulin 3.7 g/dL (1.7-4.1); Glucose 104 mg/dL (70-100); HEMOLYSIS < 15 (0-50); Lipase 16 U/L (23-300); Potassium 3.3 mmol/L (3.4-5.1); Sodium 137 mmol/L (137-145); Total Protein 8.6 g/dL (6.3-8.2)
[2019-11-06 01:17] LABS: Ethanol (ETOH) < 10 mg/dL
--- NOTE | 2019-11-06 01:42 | PC.NURSE ---
Fem cath performed, pt tolerated well, only retrieved one drop of red/brown urine.
--- NOTE | 2019-11-06 02:04 | ED_ITS ---
HPI - Abdominal Pain General Chief Complaint: Abdominal Pain Stated Complaint: vomiting/passing blood Time Seen by Provider: 11/06/19 00:45 Source: patient and family Mode of arrival: Ambulatory Limitations: other (The patient communicates poorly.) History of Present Illness HPI narrative: The patient is here complaining of lower GI bleeding. She claims she was passing clots earlier. She is now passing watery blood. She has lower abdominal cramping and pain. Her LMP was about 2 weeks ago. She does bring sic k, she denies vaginal bleeding. Is unclear if she has urinary bleeding. 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 She has a very poor historian. She was seen here last month with a history of GI bleeding, H/H was stable. Testing was negative for active GI bleeding. She denies vomiting. She has no history of PUD. She denies alcohol use. She denies drug use. Related Data Previous Rx's Medication Instructions Recorded omeprazole 20 mg PO DAILY #30 cap 09/27/19 ondansetron HCl [Zofran] 4 mg PO Q8H PRN #20 tab 09/27/19 amoxicillin 500 mg PO TID #21 cap 10/06/19 fluconazole [Diflucan] 150 mg PO Q3D #2 tab 10/06/19 ibuprofen 600 mg PO Q6-8H PRN #30 tab NS 11/06/19 Allergies Allergy/AdvReac Type Severity Reaction Status Date / Time No Known Drug Allergies Allergy Verified 09/27/19 09:50 Review of Systems Review of Systems ROS Unobtainable: All systems reviewed & are unremarkable except as noted in HPI and below Constitutional Constitutional: Denies chills, Denies fever(s), Denies lethargy and Denies weakness ENT Comments: No ENT complaints Cardiovascular Cardiovascular: Denies chest pain, Reports irregular heart rhythm, Denies lightheadedness, Denies palpitations, Denies dyspnea and Denies orthopnea Respiratory Respiratory: Denies cough, Denies dyspnea and Denies wheezing Gastrointestinal Gastrointestinal: Reports abdominal pain, Denies change in bowel habits, Reports diarrhea (Bloody diarrhea), Denies nausea and Denies vomiting Genitourinary Genitourinary: Denies dysuria, Denies pelvic pain and Denies vaginal discharge Musculoskeletal Musculoskeletal: Denies back pain, Denies muscle weakness, Denies numbness and Denies tingling Integumentary/Breasts Skin/Breast: Denies erythema, Denies rash and Denies wounds Neurologic Neurologic: Denies confusion, Denies numbness, Denies tingling and Denies weakness Psychiatric Psychiatric: Reports anxiety, Denies confusion and Denies depression Endocrine Endocrine: Denies palpitations Hematologic/Lymphatic Hematologic/Lymphatic: Denies easy bleeding and Denies easy bruising Allergic/Immunologic Allergic/Immunologic: Denies wheezing Patient History Medical History No active medical problems (Acute) Surgical History No history of previous surgery (Acute) Social History Smoking Status: Current every day smoker alcohol intake: former substance use type: does not use Smoking Status: Current every day smoker tobacco type: cigarettes alcohol intake frequency: holidays/special occasions only Alcohol type: wine Substance Use Type: marijuana Exam Initial Vital Signs Initial Vital Signs: Vital Signs Temperature 97.4 F L 11/06/19 00:30 Pulse Rate 101 H 11/06/19 00:30 Respiratory Rate 18 11/06/19 00:30 Blood Pressure 150/103 H 11/06/19 00:30 Pulse Oximetry 100 11/06/19 00:30 Const General: well developed and disheveled Nutritional Appearance: average body habitus Orientation: Orientation (Oriented to person place) [facility] Head: normocephalic and atraumatic Mouth: oral mucosae normal Eyes Conjunctivae: conjunctivae normal Resp Effort & Inspection: normal respiratory effort and able to speak in complete sentences Auscultation: clear to auscultation bilaterally, no rales, no rhonchi and no wheezes Cardio Rate: regular rate Rhythm: regular rhythm Heart Sounds: S1 normal, S2 normal, no click, no gallops, no murmurs and no rubs Pulses: normal peripheral pulses GI Inspection: normal to inspection Palpation: tender (Suprapubic abdominal tenderness with guarding, no rebound. No masses. ) Auscultation: normal bowel sounds Rectal Exam: visual inspection normal, normal sphincter tone and other (Watery, bloody stool.) Back/Spine/Pelvis Back: No CVA tenderness Skin General: no rashes or lesions noted Neuro General: alert, oriented x3, gait normal and no focal motor deficits Speech: speech normal Extrem General: normal to inspection Course Course Course Narrative: The patient is feeling much better prior to discharge. She is given Dilaudid, the Toradol for her pain. The amount of bloody diarrhea has ceased, abdominal pain is resolved. She has been referred to surgery for potential colonoscopy. Orders Ordered: ED Orders 11/06/19 00:45 Complete Blood Count AUTO DIFF Stat Comprehensive Metabolic Panel Stat Ethanol (ETOH) Stat GI Panel (Film Array) Stat Lipase Stat Test Serum,Qual Stat Prothrombin Time INR Stat 11/06/19 00:56 Urine Drug Screen, Rapid Stat 11/06/19 02:44 CT abdomen pelvis w con Stat Sodium Chloride (Normal Saline 0.9%) 1,000 mls @ 150 mls/hr IV CONT ASHWINI Last Admin: 11/06/19 01:04 Dose: 150 mls/hr Documented by: RADHA Discontinued Medications Hydromorphone HCl (Dilaudid) 1 mg IV NOW ONE Stop: 11/06/19 02:05 Last Admin: 11/06/19 02:08 Dose: 1 mg Documented by: RADHA Ketorolac Tromethamine (Toradol) 30 mg IV NOW ONE Stop: 11/06/19 05:02 Last Admin: 11/06/19 05:11 Dose: 30 mg Documented by: JORGE Vital Signs Vital signs: Vital Signs - 8 hr 11/06/19 00:30 11/06/19 05:09 Temperature 97.4 F L Pulse Rate 101 H 94 H Respiratory Rate 18 16 Blood Pressure 150/103 H Blood Pressure [Right Arm] 120/88 Pulse Oximetry 100 95 MDM - Abdominal Pain Lab Data Result diagrams: 11/06/19 00:45 11/06/19 00:45 Labs: Lab Results 11/06/19 11/06/19 11/06/19 Range/Units 00:45 00:45 00:45 WBC 13.0 H (4.5-11.0) X10^3/uL RBC 4.71 (4.0-5.2) X10^6/uL Hgb 13.8 (12.0-16.0) g/dL Hct 41.2 (36-46) % MCV 87.5 (80-100) fL MCH 29.2 (26-34) PG MCHC 33.4 (30-36) % RDW 13.6 (11.6-14.8) % Plt Count 364 (150-400) X10^3/uL Neut % (Auto) 72.6 (50-75) % Lymph % (Auto) 20.7 L (25-40) % Gladwin % (Auto) 4.9 (3-14) % Eos % (Auto) 0.6 L (2-4) % Baso % (Auto) 1.2 (0-2) % Neut # (Auto) 9500 H (7155-5590) /uL Lymph # (Auto) 2700 (3318-7986) /uL Gladwin # (Auto) 600 (0-900) /uL Eos # (Auto) 100 (0-450) /uL Baso # (Auto) 200 H (0-100) /uL PT 12.2 (10.1-12.7) SECONDS INR 1.1 (0.9-1.3) Sodium 137 (137-145) mmol/L Potassium 3.3 L (3.4-5.1) mmol/L Chloride 100 (98-107) mmol/L Carbon Dioxide 28 (22-32) mmol/L BUN 15 (7-17) mg/dL Creatinine 0.70 (0.52-1.04) mg/dL Estimated GFR > 60.0 (>60) mL/min BUN/Creatinine Ratio 21.4 (6-22) Glucose 104 H (70-100) mg/dL Calcium 9.6 (8.4-10.2) mg/dL Total Bilirubin 0.6 (0.2-1.3) mg/dL AST 33 (14-36) IU/L ALT 17 (<35) IU/L Alkaline Phosphatase 67 (38-126) U/L Total Protein 8.6 H (6.3-8.2) g/dL Albumin 4.9 (3.5-5.0) g/dL Globulin 3.7 (1.7-4.1) g/dL Albumin/Globulin Ratio 1.3 (1.0-2.8) Lipase 16 L (23-300) U/L Serum , Qual (Negative) Stl C. cayetanensis PCR (Not Detect) Stool Rotavirus (PCR) (Not Detect) Stool Adenovirus (PCR) (Not Detect) Stool Astrovirus (PCR) (Not Detect) Stool Cryptosporidium PCR (Not Detect) Stl E.coli Shiga Tox PCR (Not Detect) St Sh/Enteroin Ecoli PCR (Not Detect) Stool E coli O157 PCR Stl Enterotoxigenic E PCR (Not Detect) Stool EPEC (PCR) (Not Detect) Stl E. histolytica PCR (Not Detect) Stool Giardia Lamblia PCR (Not Detect) Stool Sapovirus (PCR) (Not Detect) Stl P. shigelloides PCR (Not Detect) St Y.enterocolitica PCR (Not Detect) Stool Vibrio (PCR) (Not Detect) Stl Vibrio cholerae PCR (Not Detect) Stl Enteroaggr Ecoli PCR (Not Detect) Stl Norovirus GI/GII PCR (Not Detect) Ethyl Alcohol < 10 ( - 10) mg/dL Campylobacter (PCR) (Not Detect) C. difficile Tox (PCR) (Not Detect) Salmonella (PCR) (Not Detect) 11/06/19 11/06/19 Range/Units 00:45 00:45 WBC (4.5-11.0) X10^3/uL RBC (4.0-5.2) X10^6/uL Hgb (12.0-16.0) g/dL Hct (36-46) % MCV (80-100) fL MCH (26-34) PG MCHC (30-36) % RDW (11.6-14.8) % Plt Count (150-400) X10^3/uL Neut % (Auto) (50-75) % Lymph % (Auto) (25-40) % Gladwin % (Auto) (3-14) % Eos % (Auto) (2-4) % Baso % (Auto) (0-2) % Neut # (Auto) (6232-3264) /uL Lymph # (Auto) (3142-2069) /uL Gladwin # (Auto) (0-900) /uL Eos # (Auto) (0-450) /uL Baso # (Auto) (0-100) /uL PT (10.1-12.7) SECONDS INR (0.9-1.3) Sodium (137-145) mmol/L Potassium (3.4-5.1) mmol/L Chloride (98-107) mmol/L Carbon Dioxide (22-32) mmol/L BUN (7-17) mg/dL Creatinine (0.52-1.04) mg/dL Estimated GFR (>60) mL/min BUN/Creatinine Ratio (6-22) Glucose (70-100) mg/dL Calcium (8.4-10.2) mg/dL Total Bilirubin (0.2-1.3) mg/dL AST (14-36) IU/L ALT (<35) IU/L Alkaline Phosphatase (38-126) U/L Total Protein (6.3-8.2) g/dL Albumin (3.5-5.0) g/dL Globulin (1.7-4.1) g/dL Albumin/Globulin Ratio (1.0-2.8) Lipase (23-300) U/L Serum , Qual Negative (Negative) Stl C. cayetanensis PCR Not detected (Not Detect) Stool Rotavirus (PCR) Not detected (Not Detect) Stool Adenovirus (PCR) Not detected (Not Detect) Stool Astrovirus (PCR) Not detected (Not Detect) Stool Cryptosporidium PCR Not detected (Not Detect) Stl E.coli Shiga Tox PCR Not detected (Not Detect) St Sh/Enteroin Ecoli PCR Not detected (Not Detect) Stool E coli O157 PCR Not Reportable Stl Enterotoxigenic E PCR Not detected (Not Detect) Stool EPEC (PCR) Not detected (Not Detect) Stl E. histolytica PCR Not detected (Not Detect) Stool Giardia Lamblia PCR Not detected (Not Detect) Stool Sapovirus (PCR) Not detected (Not Detect) Stl P. shigelloides PCR Not detected (Not Detect) St Y.enterocolitica PCR Not detected (Not Detect) Stool Vibrio (PCR) Not detected (Not Detect) Stl Vibrio cholerae PCR Not detected (Not Detect) Stl Enteroaggr Ecoli PCR Not detected (Not Detect) Stl Norovirus GI/GII PCR Not detected (Not Detect) Ethyl Alcohol ( - 10) mg/dL Campylobacter (PCR) Not detected (Not Detect) C. difficile Tox (PCR) Not detected (Not Detect) Salmonella (PCR) Not detected (Not Detect) Imaging Data CT scan - abdomen/pelvis: Radiologist's Impression: Diffuse circumferential wall thickening in the sigmoid colon consistent with colitis. Discharge Plan Departure Patient Disposition: Home Clinical Impression: Colitis Instructions: DI for Colitis Activity Restrictions/Additional Instructions: Motrin every 6 hours as needed for pain. Drink plenty of fluids, you should stay on a bland diet. Return tothe ER if you have increased abdominal pain, or bloody diarrhea. Return the ER if you have fever. Contact Dr. Calvin, one of our local surgeons, for follow-up. Prescriptions: New ibuprofen 600 mg tablet 600 mg PO Q6-8H PRN (Reason: pain) Qty: 30 RF: 0 No Action ondansetron HCl [Zofran] 4 mg tablet 4 mg PO Q8H PRN (Reason: nausea and vomiting) Qty: 20 RF: 0 omeprazole 20 mg capsule,delayed release(DR/EC) 20 mg PO DAILY Qty: 30 RF: 0 amoxicillin 500 mg capsule 500 mg PO TID Qty: 21 RF: 0 fluconazole [Diflucan] 150 mg tablet 150 mg PO Q3D Qty: 2 RF: 0 Referrals: Margarito Calvin MD [Physician] -
[2019-11-06] MEDS: HYDROMORPHONE 1 MG INJ IV (02:08)
[2019-11-06 02:26] LABS: Pregnancy Test Serum,Qual Negative (Negative)
--- NOTE | 2019-11-06 02:44 | DI.CT.S_ITS ---
PROCEDURE: CT ABDOMEN PELVIS W CON INDICATIONS: Suprapubic pain. Bloody diarrhea. TECHNIQUE: After the administration of intravenous contrast, 5 mm thick sections acquired from the diaphragm to the symphysis. 5 mm coronal and sagittal reformats were acquired. For radiation dose reduction, the following was used: automated exposure control, adjustment of mA and/or kV according to patient size. COMPARISON: [facility], CT, CT ABDOMEN PELVIS W CON, 11/15/2018, 21:08. FINDINGS: Image quality: Excellent. ABDOMEN: Lung bases: Lung bases are clear. Heart size is normal. Solid organs: Liver is normal in size and enhancement. Gallbladder is normal. Biliary system is non dilated. Pancreas enhances normally. Spleen is normal in size and enhancement. No adrenal nodules. Kidneys demonstrate normal size and enhancement, without hydronephrosis. Peritoneum and bowel: Bowel loops demonstrate normal caliber. There is diffuse thickening of the distal colon involving the sigmoid colon and rectum. Concentric thickening is also noted in loops of jejunum. No free fluid or air. Nodes and vessels: No retroperitoneal or mesenteric adenopathy by size criteria. Aorta and inferior vena cava are normal in size. Miscellaneous: Small fat-containing umbilical hernia is noted. PELVIS: Genitourinary: Bladder wall thickness is normal. There is a septated uterus. Miscellaneous: No inguinal hernias or adenopathy. Bones: No suspicious bony lesions. No vertebral body compression fractures. IMPRESSION: 1. There is diffuse thickening of the sigmoid colon and rectum consistent with colitis/proctitis. Differential diagnoses include infectious etiologies and inflammatory bowel disease such as ulcerative colitis. 2. There is also consented thickening in several loops of jejunum, which may be infectious or inflammatory etiology. 3. Septated uterus. Pelvic ultrasound or MRI may be obtained for further elevation. Dictated by: Nova Anguiano M.D. on 11/06/2019 at 7:39 Transcribed by: GRETCHEN on 11/06/2019 at 7:52 Approved by: Nova Anguiano M.D. on 11/06/2019 at 10:29
--- NOTE | 2019-11-06 03:27 | PC.NURSE ---
Pt tolerating oral CT contrast
[2019-11-06 03:42] LABS: Adenovirus F 40/41 Not Detected (Not Detect); Astrovirus Not Detected (Not Detect); Campylobacter Not Detected (Not Detect); Clostridium difficile toxin AB Not Detected (Not Detect); Cryptosporidium Not Detected (Not Detect); Cyclospora cayetanensis Not Detected (Not Detect); Entamoeba histolytica Not Detected (Not Detect); Enteroaggregative E.coli Not Detected (Not Detect); Enteropathogenic E.coli Not Detected (Not Detect); Enterotoxigenic E.coli It/st Not Detected (Not Detect); Giardia lamblia Not Detected (Not Detect); Norovirus GI/GII Not Detected (Not Detect); Plesiomonsa shigelloides Not Detected (Not Detect); Rotavirus A Not Detected (Not Detect); Salmonella Not Detected (Not Detect); Sapovirus Not Detected (Not Detect); Shiga-like toxin-prod E.coli Not Detected (Not Detect); Shigella/Enteroinvasive E.coli Not Detected (Not Detect); Vibrio Not Detected (Not Detect); Vibrio cholerae Not Detected (Not Detect); Yersinia enterocolitica Not Detected (Not Detect)
[2019-11-06 05:09] VITALS: BP 120/88; PULSE 94; RESP 16; O2SAT 95
[2019-11-06] MEDS: KETOROLAC 60 MG/2 ML VIAL 30 MG IV (05:11)
[2019-11-06 07:01] VITALS: BP 127/78; PULSE 94; RESP 18; TEMP 36.8; O2SAT 100
== END 2019-11-06 07:12 | disposition home or self-care (01) ==
PROVIDERS: Emergency Provider Emergency Medicine
DX: K52.9 Noninfective gastroenteritis and colitis, unspecified (principal)
CPT/HCPCS: 36415; 74177; 80053; 80320; 83690; 84703; 85025; 85610; 87507; 99284; J1170; J1885; Q9967

== ENCOUNTER 2019-11-06 12:20 | Emergency (ER) | payer OTHER, MEDICAID, SELFPAY ==
--- NOTE | 2019-11-06 12:27 | ED.GIBLEED ---
HPI - GI Bleed General Chief complaint: Abdominal Pain Stated complaint: PASSING BLOOD NOT BETTER Time Seen by Provider: 11/06/19 12:22 Source: patient Mode of arrival: Ambulatory Limitations: no limitations History of Present Illness HPI Narrative: Patient is a 34-year-old female who was seen and evaluated just seen and evaluated during the last evening shift and discharge. She had full workup including GI panel blood work and CT. She was diagnosed with colitis. She continues to have diffuse abdominal pain and bloody stool. She conveniently showed me a picture of her large bloody bowel movement. Her GI panel was negative. She denies any nausea or vomiting she is tearful and appears to be uncomfortable MD complaint: gross hematochezia Associated symptoms: abdominal pain Related Data Previous Rx's Medication Instructions Recorded ciprofloxacin HCl [Cipro] 500 mg PO Q12H #14 tab 11/06/19 hydrocodone-acetaminophen [[place]] 1 tab PO Q6H PRN #7 tab 11/06/19 metronidazole [Flagyl] 500 mg PO TID #21 tab 11/06/19 Allergies Allergy/AdvReac Type Severity Reaction Status Date / Time No Known Drug Allergies Allergy Verified 11/06/19 12:38 Review of Systems Review of Systems Narrative: GENERAL: Denies chills, fatigue, malaise, fever, sweats, travel HEENT: Denies sinus pain, ear pain, sore throat, difficulty swallowing, neck pain RESPIRATORY: Denies dyspnea, cough, wheezing, hemoptysis, sputum. CARDIOVASCULAR: Denies chest pain, palpitations, orthopnea, edema GASTROINTESTINAL: See HPI : Denies dysuria, frequency, incontinence, hematuria, urinary retention, flank pain. MUSCULOSKELETAL: Denies weakness, joint pain, or bony pain SKIN: No rash, no erythema, no pruritus NEUROLOGIC: Denies weakness, dizziness, headache, numbness, change in speech, confusion PSYCHIATRIC: No concerning psychosocial issues. 12 point review of systems is negative except for those stated above and HPI Patient History Medical History No active medical problems (Acute) Surgical History No history of previous surgery (Acute) Social History Smoking Status: Current every day smoker alcohol intake: former substance use type: does not use Smoking Status: Current every day smoker tobacco type: cigarettes alcohol intake frequency: holidays/special occasions only Alcohol type: wine Substance Use Type: marijuana Exam Initial Vital Signs Initial Vital Signs: Vital Signs Temperature 98.1 F 11/06/19 12:38 Pulse Rate 107 H 11/06/19 12:38 Respiratory Rate 20 11/06/19 12:38 Blood Pressure 160/88 H 11/06/19 12:38 Pulse Oximetry 98 11/06/19 12:38 GENERAL: Young female tearful appears in pain and in no acute distress. HEENT: Head atraumatic,EOMI, pupils reactive, face symmetric CARDIOVASCULAR: Regular rate and rhythm without murmurs, rubs or gallops. RESPIRATORY: Breath sounds equal bilaterally, no wheezes rales or rhonchi. ABDOMEN: Soft, nontender. Normoactive bowel sounds all 4 quadrants. No guarding or rebound. EXTREMITIES: Normal range of motion, no clubbing or edema. Neurovascularly intact NEUROLOGICAL: Alert and oriented x4.Normal gait and speech. Cranial nerves II through XII grossly intact. SKIN: Warm, dry, no laceration, no petechiae, no rashes or lesions. Course Orders Ordered: ED Orders 11/06/19 13:00 Complete Blood Count AUTO DIFF Stat Discontinued Medications Hydromorphone HCl (Dilaudid) 1 mg IV NOW ONE Stop: 11/06/19 13:02 Last Admin: 11/06/19 13:14 Dose: 1 mg Documented by: MEISENB Sodium Chloride (Normal Saline 0.9%) 1,000 mls @ 1,000 mls/hr IV BOLUS ONE Stop: 11/06/19 14:00 Last Infusion: 11/06/19 14:22 Dose: 0 mls/hr Documented by: Admin: 11/06/19 13:14 Dose: 1,000 mls/hr Documented by: THOSENCedric Vital Signs Vital signs: Vital Signs - 8 hr 11/06/19 12:38 11/06/19 15:04 Temperature 98.1 F Pulse Rate 107 H 98 H Respiratory Rate 20 18 Blood Pressure 160/88 H Blood Pressure [Left Arm] 154/98 H Pulse Oximetry 98 100 MDM - GI Bleed Lab Data Attestation: I reviewed the patient's lab results. Result diagrams: 11/06/19 13:00 Labs: Lab Results 11/06/19 Range/Units 13:00 WBC 14.4 H (4.5-11.0) X10^3/uL RBC 4.36 (4.0-5.2) X10^6/uL Hgb 12.8 (12.0-16.0) g/dL Hct 38.5 (36-46) % MCV 88.3 (80-100) fL MCH 29.5 (26-34) PG MCHC 33.4 (30-36) % RDW 13.5 (11.6-14.8) % Plt Count 334 (150-400) X10^3/uL Neut % (Auto) 68.4 (50-75) % Lymph % (Auto) 21.0 L (25-40) % Graham % (Auto) 7.0 (3-14) % Eos % (Auto) 2.9 (2-4) % Baso % (Auto) 0.7 (0-2) % Neut # (Auto) 9800 H (2924-3310) /uL Lymph # (Auto) 3000 (1166-9382) /uL Graham # (Auto) 1000 H (0-900) /uL Eos # (Auto) 400 (0-450) /uL Baso # (Auto) 100 (0-100) /uL MDM Narrative Medical decision making narrative: Patient is feeling better after Dilaudid. No significant change in hemoglobin and hematocrit after 12 hours. Will start her on Flagyl and Cipro for colitis and I will give her a small amount of pain medication. She states that she is homeless but does have health insurance. She is given pain medication and antibiotics. However upon discharge she states that she can't live like this and if she leaves she will kill herself. Social work has been consulted be away attestation form has been filled. Patient is getting frustrated she is tearful she now says that she is leaving to go rest. She did not take her prescriptions which included a [place] prescription for 7 tablets. Police have been called. Discharge Plan Departure Patient Disposition: Home Clinical Impression: Colitis Discharge Date/Time: 11/06/19 15:24 Instructions: DI for Colitis Activity Restrictions/Additional Instructions: *You have been diagnosed with colitis *What to do: Recommend clear liquid diet, expect to have some bloody bowel movements and some abdominal pain, however it should be improving over the next 1-2 days *Continue to take medications as directed Flagyl 500 mg 3 times a day for 7 days Cipro 500 mg twice a day for 7 days [place] 1 tablet every 6 hours only if needed for severe pain *Follow up with your primary care provider in 2-3 days *Return to ER if you should have multiple frequent episodes of bloody stool pain not controlled, or any new, worsening or concerning symptoms Prescriptions: New metronidazole [Flagyl] 500 mg tablet 500 mg PO TID Qty: 21 RF: 0 ciprofloxacin HCl [Cipro] 500 mg tablet 500 mg PO Q12H Qty: 14 RF: 0 hydrocodone-acetaminophen [[place]] 5-325 mg tablet 1 tab PO Q6H PRN (Reason: pain) Qty: 7 RF: 0 Referrals: [facility] [Outside]
[2019-11-06 12:38] VITALS: BP 160/88; PULSE 107; RESP 20; TEMP 36.7; O2SAT 98; BMI 23.4
[2019-11-06 13:12] LABS: Add Manual Diff / Slide Review NO; Basophils Absolute Auto 100 /uL (0-100); Basophils Percent Auto 0.7 % (0-2); Eosinophils Absolute Auto 400 /uL (0-450); Eosinophils Percent Auto 2.9 % (2-4); Hematocrit 38.5 % (36-46); Hemoglobin 12.8 g/dL (12.0-16.0); Lymphocytes Absolute Auto 3000 /uL (1100-4500); Mean Corpuscular HGB Conc 33.4 % (30-36); Mean Corpuscular Hemoglobin 29.5 PG (26-34); Mean Corpuscular Volume 88.3 fL (80-100); Monocytes Absolute Auto 1000 /uL (0-900); Neutrophils Absolute Auto 9800 /uL (1500-7000); Neutrophils Percent Auto 68.4 % (50-75); Platelet Count 334 X10^3/uL (150-400); Red Blood Cell Count 4.36 X10^6/uL (4.0-5.2); Red Cell Distribution Width 13.5 % (11.6-14.8); White Blood Cell Count 14.4 X10^3/uL (4.5-11.0)
[2019-11-06] MEDS: HYDROMORPHONE 1 MG INJ IV (13:14)
[2019-11-06] MEDS: SODIUM CHLORIDE 0.9% 1,000 ML 1000 ML IV (13:14)
--- NOTE | 2019-11-06 14:57 | PC.NURSE ---
during dc instruction, pt crying with tears, states, im having so much pain, I cant go home and live like this, Im gonna jump in the bridge dr palomino made aware, [employer] consult. spoke with Parul, referred to [facility] [phone] and if involuntary to call [facility].
[2019-11-06 15:04] VITALS: BP 154/98; PULSE 98; RESP 18; O2SAT 100
--- NOTE | 2019-11-06 15:16 | PC.NURSE ---
pt just left. police contacted.
--- NOTE | 2019-11-06 15:17 | PC.NURSE ---
at 1505 crisis contacted and reported pt.
--- NOTE | 2019-11-06 15:20 | PC.NURSE ---
Provider at bedside talking to patient. patient had removed her IV and stated you guys want me to leave I am fucking leaving. I am in so much pain and I need to rest Provider asked her if she was going to leave and rest or kill herself patient stated I am going to rest patient stormed out of department
--- NOTE | 2019-11-06 15:21 | PC.NURSE ---
Police notified to check on person
--- NOTE | 2019-11-06 15:22 | PC.NURSE ---
pt left without her rx and instructions.
== END 2019-11-06 15:24 | disposition home or self-care (01) ==
PROVIDERS: Emergency Provider Emergency Medicine
DX: K52.9 Noninfective gastroenteritis and colitis, unspecified (principal); K62.5 Hemorrhage of anus and rectum
CPT/HCPCS: 36415; 74177; 80053; 80320; 83690; 84703; 85025; 85610; 87507; 96361; 96374; 96375; 96376; 99284; J1170; J1885; Q9967

== ENCOUNTER 2020-02-10 21:27 | Emergency (ER) | payer OTHER, MEDICAID, SELFPAY ==
--- NOTE | 2020-02-10 21:32 | ED_ITS ---
HPI - SOB/Dyspnea General Chief Complaint: Shortness of Breath/Dyspnea Stated Complaint: trouble breathing,headache,cough Time Seen by Provider: 02/10/20 21:29 Source: patient Mode of arrival: Ambulatory Limitations: no limitations History of Present Illness HPI Narrative: 34F daily smoker without significant medical history presents with a chief complaint of a few days of runny nose and sneezing as well as cough which is occasionally productive sputum. She denies any fever or chills. She is not dizzy nor weak or lightheaded. She denies any chest pain, nausea or vomiting. She denies dysuria, frequency or urgency. She denies recent travel or exposure to persons known to be positive for COVID-19 MD Complaint: cough Onset (ago): day(s) Severity: moderate Consistency/Duration: constant Relieving factors: nothing Exacerbating factors: nothing Associated symptoms: wheezing Treatment prior to arrival: none Related Data Home oxygen amount: none Previous Rx's Medication Instructions Recorded ciprofloxacin HCl [Cipro] 500 mg PO Q12H #14 tab 11/06/19 hydrocodone-acetaminophen [[place]] 1 tab PO Q6H PRN #7 tab 11/06/19 metronidazole [Flagyl] 500 mg PO TID #21 tab 11/06/19 doxycycline monohydrate 100 mg PO BID 10 Days #20 cap 02/10/20 Allergies Allergy/AdvReac Type Severity Reaction Status Date / Time No Known Drug Allergies Allergy Verified 02/10/20 21:40 Review of Systems Constitutional Constitutional: Denies chills, Denies fatigue, Denies fever(s), Denies frequent falls, Denies lethargy and Denies weakness Eyes Eyes: Denies change in vision, Denies eye discharge, Denies irritation and Denies loss of vision ENT Ears, Nose, Mouth, and Throat: Denies change in voice, Denies dizziness, Reports nasal congestion, Denies neck pain, Denies sore throat and Denies throat swelling Cardiovascular Cardiovascular: Denies chest pain, Denies irregular heart rhythm, Denies lightheadedness, Denies palpitations, Denies dyspnea, Denies dyspnea on exertion and Denies orthopnea Respiratory Respiratory: Reports cough, Denies dyspnea, Denies dyspnea on exertion and Denies wheezing Gastrointestinal Gastrointestinal: Denies abdominal pain, Denies change in bowel habits, Denies diarrhea, Denies nausea and Denies vomiting Genitourinary Genitourinary: Denies hematuria, Denies flank pain, Denies urinary incontinence and Denies urinary urgency Musculoskeletal Musculoskeletal: Denies back pain, Denies muscle weakness, Denies neck pain, Denies numbness and Denies tingling Integumentary/Breasts Skin/Breast: Denies pruritus, Denies erythema, Denies rash and Denies wounds Neurologic Neurologic: Denies behavioral changes, Denies confusion, Denies dizziness, Denies frequent falls, Denies loss of vision, Denies numbness, Denies tingling and Denies weakness Psychiatric Psychiatric: Denies anxiety, Denies behavioral changes, Denies confusion, Denies depression, Denies homicidal ideation and Denies suicidal ideation Endocrine Endocrine: Denies fatigue, Denies flushing and Denies palpitations Hematologic/Lymphatic Hematologic/Lymphatic: Denies easy bruising Allergic/Immunologic Allergic/Immunologic: Denies urticaria, Denies throat swelling and Denies wheezing Patient History Medical History No active medical problems (Acute) Surgical History No history of previous surgery (Acute) Social History Smoking Status: Current every day smoker alcohol intake: former substance use type: does not use Smoking Status: Current every day smoker tobacco type: cigarettes alcohol intake frequency: holidays/special occasions only Alcohol type: wine Substance Use Type: marijuana Exam Narrative Exam Narrative: GENERAL: [34] year old patient appears stated age. Well- nourished, well-developed patient, in mild distress. HEAD: Atraumatic. Normocephalic. EYES: Pupils equal round and reactive. Extraocular motions intact. No scleral icterus. No injection or drainage. ENT: Nose without bleeding, purulent drainage. Clear postnasal drip. Throat without erythema, tonsillar hypertrophy or exudate. Airway patent. NECK: Trachea midline. Non tender CARDIOVASCULAR: Regular rate and rhythm without murmurs, gallops, or rubs. RESPIRATORY: Mild end-expiratory wheeze GASTROINTESTINAL: Abdomen soft, non-tender, nondistended. EXTREMITIES: No edema or joint tenderness. BACK: Nontender without deformity or crepitance. No flank tenderness. NEURO: AOx3. SKIN: No rash or erythema of visible areas Initial Vital Signs Initial Vital Signs: Vital Signs Temperature 97.6 F 02/10/20 21:35 Pulse Rate 87 02/10/20 21:35 Respiratory Rate 18 02/10/20 21:35 Blood Pressure 145/86 H 02/10/20 21:35 Pulse Oximetry 98 02/10/20 21:35 Course Orders Ordered: ED Orders 02/10/20 21:35 XR chest 1V Stat Discontinued Medications Albuterol (Ventolin Hfa Prepack) 1 box MISC SEEINSTR ONE Stop: 02/10/20 21:37 Last Admin: 02/10/20 21:49 Dose: 1 box Documented by: MARIA ELENA Vital Signs Vital signs: Vital Signs - 8 hr 02/10/20 21:35 02/10/20 21:49 Temperature 97.6 F Pulse Rate 87 82 Respiratory Rate 18 18 Blood Pressure 145/86 H Pulse Oximetry 98 98 MDM - SOB/Dyspnea Imaging Data Chest x-ray: Radiologist's Impression: Kathryn Whitehead 34 F [address] [address] XRay Report Signed Patient: Kathryn Whitehead EMR#: [id number] : 1985Acct:[id number] Age/Sex: 34 / FDate of Service: 02/10/20 Loc: ED Accession Number: [id number] Procedure: XR chest 1V Ordering Provider: Jone Allen D.O. PROCEDURE: XR CHEST 1V INDICATIONS: SOB, cough TECHNIQUE: One view of the chest was acquired. COMPARISON: [facility], , XR CHEST 1 VIEW, 01/11/2020, 16:44. [facility], , XR CHEST 1V, 11/02/2018, 21:16. FINDINGS: Surgical changes and devices: None. Lungs and pleura: Lungs are clear. No pleural effusions or pneumothorax. Mediastinum: Mediastinal contours appear normal. Heart size is normal. Bones and chest wall: No suspicious bony lesions. Overlying soft tissues appear unremarkable. IMPRESSION: No acute cardiopulmonary findings. Dictated by: Marcie Sullivan M.D. on 02/10/2020 at 21:55 Approved by: Marcie Sullivan M.D. on 02/10/2020 at 21:56 Discharge Plan Departure Patient Disposition: Home Clinical Impression: Atypical pneumonia Discharge Date/Time: 02/10/20 22:13 Instructions: DI for Atypical Pneumonia Activity Restrictions/Additional Instructions: *You have been diagnosed with [atypical pneumonia, chest x-ray is very reassuring and shows no classic pneumonia] *What to do: *Take medications as directed: [id number] cough and cold medications as well as the antibiotic prescription *Follow up with your primary care provider in 2-3 days, call for an appointment. Let them know you were seen in the Emergency Department and that we ask that you be seen in follow up *Return to ER if you should have any new, worsening or concerning symptoms Prescriptions: New doxycycline monohydrate 100 mg capsule 100 mg PO BID 10 Days Qty: 20 RF: 0 No Action metronidazole [Flagyl] 500 mg tablet 500 mg PO TID Qty: 21 RF: 0 ciprofloxacin HCl [Cipro] 500 mg tablet 500 mg PO Q12H Qty: 14 RF: 0 hydrocodone-acetaminophen [[place]] 5-325 mg tablet 1 tab PO Q6H PRN (Reason: pain) Qty: 7 RF: 0
[2020-02-10 21:35] VITALS: BP 145/86; PULSE 87; RESP 18; TEMP 36.4; O2SAT 98; BMI 23.0
--- NOTE | 2020-02-10 21:35 | DI.RAD.S_ITS ---
PROCEDURE: XR CHEST 1V INDICATIONS: SOB, cough TECHNIQUE: One view of the chest was acquired. COMPARISON: [facility], CR, XR CHEST 1 VIEW, 01/11/2020, 16:44. [facility], CR, XR CHEST 1V, 11/02/2018, 21:16. FINDINGS: Surgical changes and devices: None. Lungs and pleura: Lungs are clear. No pleural effusions or pneumothorax. Mediastinum: Mediastinal contours appear normal. Heart size is normal. Bones and chest wall: No suspicious bony lesions. Overlying soft tissues appear unremarkable. IMPRESSION: No acute cardiopulmonary findings. Dictated by: Marcie Sullivan M.D. on 02/10/2020 at 21:55 Approved by: Marcie Sullivan M.D. on 02/10/2020 at 21:56
[2020-02-10 21:49] VITALS: PULSE 82; RESP 18; O2SAT 98
[2020-02-10] MEDS: ALBUTEROL HFA PREPACK 1 BOX MISC (21:49)
--- NOTE | 2020-02-10 22:43 | PC.NURSE ---
patient left script in room. Attempted to call patient with no answer or ability to leave a message.
--- NOTE | 2020-02-10 23:07 | PC.NURSE ---
second attempt to reach patient with no contact made. Voice mailbox message states not set up for voicemail.
== END 2020-02-10 22:13 | disposition home or self-care (01) ==
PROVIDERS: Emergency Provider Emergency Medicine
DX: J18.9 Pneumonia, unspecified organism (principal); R06.02 Shortness of breath
CPT/HCPCS: 71045; 94640; 99281; 99283